=== PATIENT | male | born 1960 | race Caucasian/White ===

== ENCOUNTER 2016-11-25 14:28 | Emergency (ER) | payer OTHER ==
[2016-11-25] MEDS ORDERED: Sodium Chloride 0.9% 10 ML Syringe FLUSH PRN (14:43)
--- NOTE | 2016-11-25 15:19 | CR ---
Chest: Portable view of the chest was obtained. Comparison: No previous study. Heart size is slightly prominent. Upper mediastinum is within normal limits. Minimal atelectasis within the right lung base is seen. Old rib fractures with subsequent deformity is seen within the left chest. Rib fractures appear to be healed. Previous acromioplasty noted within the left shoulder. Mild scoliosis and degenerative change is seen within the spine. Impression: 1. Incidental findings. Nothing acute is identified on portable chest x-ray. Diagnostic code #2
[2016-11-25] MEDS ORDERED: Famotidine 20 MG/2 ML SDV IVPUSH ONE (15:22)
[2016-11-25] MEDS ORDERED: Ondansetron 4 MG/2 ML SDV IVPUSH ONE (15:22)
[2016-11-25] MEDS ORDERED: Sodium Chloride 0.9% 1,000 ML IV SCH (15:30)
--- NOTE | 2016-11-25 16:18 | EDM.PDOC ---
ED HISTORY OF PRESENT ILLNESS - General Chief Complaint: Chest Pain Stated Complaint: RIB PAIN/NAUSEA/VOMITING Time Seen by Provider: 11/25/16 14:42 Source of Information: Reports: Patient, RN notes reviewed - History of Present Illness INITIAL COMMENTS - FREE TEXT/NARRATIVE: 56 year old male that started with upper abd pain yesterday, severe watery diarrhea this past morning with increased pain upper abd radiating to lower mid chest. Pain does not radiate to L shoulder, arm or back. He is not short of breath. No recent cough, fever or chills. He has had nausea, no vomiting. - Related Data Allergies/ADRs: Allergies Allergy/AdvReac Type Severity Reaction Status Date / Time No Known Allergies Allergy Verified 11/25/16 14:43 Home Meds: Home Meds Aspirin/Calcium Carbonate/Mag [Aspirin Buffered 325 mg Tab] 325 mg PO DAILY [History] Hydrochlorothiazide 25 mg PO DAILY 11/25/16 [History] Omeprazole Magnesium [Prilosec] 10 mg PO DAILY 11/25/16 [History] metFORMIN [Glucophage XR] 500 mg PO BTNUNITS 11/25/16 [History] traZODone 100 mg PO DAILY 11/25/16 [History] Past Medical History HEENT History: Reports: Glaucoma Cardiovascular History: Reports: High cholesterol, Hypertension Respiratory History: Reports: Other (see below) Other Respiratory History: 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 Had CT which confirmed had a stroke Endocrine/Metabolic History: Reports: Diabetes, type II - Past Surgical History Musculoskeletal Surgical History: Reports: Shoulder surgery, Other (see below) Other Musculoskeletal Surgeries/Procedures:: knee surgery Social & Family History - Tobacco Use Smoking Status *Q: Current Every Day Smoker Years of Tobacco use: 25 Packs/Tins Daily: 0.5 - Caffeine Use Caffeine Use: Reports: Energy drinks - Recreational Drug Use Recreational Drug Use: No ED ROS GENERAL - Review of Systems Review Of Systems: See Below Constitutional: Denies: fever, chills HEENT: Denies: Sinus problem, Throat pain Respiratory: Denies: Shortness of Breath, Wheezing, Pleuritic Chest Pain Cardiovascular: Reports: Chest pain GI/Abdominal: Reports: Abdominal pain, Diarrhea (frequent watery today) Musculoskeletal: Denies: neck pain, shoulder pain, arm pain, back pain, joint pain Skin: Reports: no symptoms Neurological: Denies: Numbness, Tingling, Trouble Speaking, Weakness ED EXAM, GENERAL - Physical Exam Exam: See Below General Appearance: alert, no apparent distress Eye Exam: bilateral eye: PERRL Throat/Mouth: Normal inspection, Normal oropharynx, Other (oral mucosa is moist) Head: No: facial swelling Neck: supple, full range of motion. No: lymphadenopathy (L), lymphadenopathy (R ) Respiratory/Chest: no respiratory distress, lungs clear, normal breath sounds, chest non-tender Cardiovascular: regular rate, rhythm GI/Abdominal: soft, tender (mild upper mid epigastric tenderness). No: guarding , rebound Back Exam: No: CVA tenderness (L), CVA tenderness (R) Extremities: normal inspection. No: pedal edema, leg pain Neurological: alert, oriented, no motor/sensory deficits Skin Exam: Warm, Dry, Normal color EKG INTERPRETATION EKG Date: 11/25/16 Rhythm: other (sinus roseanna) Rate (beats/min): 53 [place]: normal P-wave: present QRS: normal ST-T: normal Course - Vital Signs Last Recorded V/S: Last Vital Signs Temp 97.4 F 11/25/16 14:40 Pulse 56 L 11/25/16 14:40 Resp 16 11/25/16 14:40 BP 133/80 11/25/16 14:40 Pulse Ox 96 11/25/16 14:40 - Orders/Labs/Meds Orders: Active Orders 24 hr Category Date Time Status EKG 12 Lead [EKG Documentation Completion] [RC] STAT Care 11/25/16 14:43 Active Peripheral IV Care [RC] . DIRECTED Care 11/25/16 14:43 Active Sodium Chloride 0.9% [Normal Saline] 1,000 ml Med 11/25/16 15:30 Active IV ONETIME Sodium Chloride 0.9% [Saline Flush] Med 11/25/16 14:43 Active 10 ml FLUSH ASDIRECTED PRN Peripheral IV Insertion Adult [OM.PC] Stat Oth 11/25/16 14:43 Ordered Medication Orders Sodium Chloride (Normal Saline) 1,000 mls @ 999 mls/hr IV ONETIME LEILA Last Admin: 11/25/16 15:30 Dose: 999 mls/hr Sodium Chloride (Saline Flush) 10 ml FLUSH ASDIRECTED PRN PRN Reason: Keep Vein Open Last Admin: 11/25/16 15:09 Dose: 10 ml Labs: Laboratory Tests 11/25/16 11/25/16 Range/Units 15:05 15:05 WBC 8.73 (4.23-9.07) K/mm3 RBC 5.38 (4.63-6.08) M/mm3 Hgb 15.8 (13.7-17.5) gm/L Hct 46.1 (40.1-51.0) % MCV 85.7 (79.0-92.2) fl MCH 29.4 (25.7-32.2) pg MCHC 34.3 (32.2-35.5) g/dl RDW Std Deviation 42.9 (35.1-43.9) fL Plt Count 223 (163-337) K/mm3 MPV 10.4 (9.4-12.3) fl Neut % (Auto) 78.5 H (34.0-67.9) % Lymph % (Auto) 12.9 L (21.8-53.1) % [place] % (Auto) 7.1 (5.3-12.2) % Eos % (Auto) 1.1 (0.8-7.0) Baso % (Auto) 0.2 (0.1-1.2) % Neut # (Auto) 6.84 H (1.78-5.38) K/mm3 Lymph # (Auto) 1.13 L (1.32-3.57) K/mm3 [place] # (Auto) 0.62 (0.30-0.82) K/mm3 Eos # (Auto) 0.10 (0.04-0.54) K/mm3 Baso # (Auto) 0.02 (0.01-0.08) K/mm3 Sodium 140 (136-145) mEq/L Potassium 3.0 L (3.5-5.1) mEq/L Chloride 102 (98-107) mEq/L Carbon Dioxide 28 (21-32) mEq/L Anion Gap 13.0 (5-15) BUN 19 H (7-18) mg/dL Creatinine 1.0 (0.7-1.3) mg/dL Est Cr Clr Drug Dosing TNP Estimated GFR (MDRD) > 60 (>60) mL/min BUN/Creatinine Ratio 19.0 H (14-18) Glucose 128 H (74-106) mg/dL Calcium 9.3 (8.5-10.1) mg/dL Total Bilirubin 0.6 (0.2-1.0) mg/dL AST 41 H (15-37) U/L ALT 56 (16-63) U/L Alkaline Phosphatase 53 (46-116) U/L Troponin I < 0.017 (0.00-0.056) ng/mL Total Protein 7.7 (6.4-8.2) g/dl Albumin 4.1 (3.4-5.0) g/dl Globulin 3.6 gm/dL Albumin/Globulin Ratio 1.1 (1-2) Meds: Medications Generic Name Dose Route Start Last Admin Trade Name Freq PRN Reason Stop Dose Admin Sodium Chloride 1,000 mls @ 999 mls/hr 11/25/16 15:30 11/25/16 15:30 Normal Saline IV 999 mls/hr ONETIME LEILA Administration Sodium Chloride 10 ml 11/25/16 14:43 11/25/16 15:09 Saline Flush FLUSH 10 ml ASDIRECTED PRN Administration Keep Vein Open Discontinued Medications Generic Name Dose Route Start Last Admin Trade Name Freq PRN Reason Stop Dose Admin Famotidine 20 mg 11/25/16 15:22 11/25/16 15:34 Pepcid IVPUSH 11/25/16 15:23 20 mg ONETIME ONE Administration Ondansetron HCl 4 mg 11/25/16 15:22 11/25/16 15:31 Zofran IVPUSH 11/25/16 15:23 4 mg ONETIME ONE Administration - Re-Assessments/Exams Free Text/Narrative Re-Assessment/Exam: 11/25/16 16:25 EKG showed sinus roseanna, no acute changes, trop labs normal except low K+. Have treated with IV NS, IV pepcid, zofran. He is feeling better.Discharge instr. as documented. Departure - Departure Time of Disposition: 16:13 Disposition: Home, Self-Care 01 Condition: fair Clinical Impression: Atypical chest pain, Hypokalemia Abdominal pain Qualifiers: Abdominal location: upper abdomen, unspecified Qualified Code(s): R10.10 - Upper abdominal pain, unspecified Diarrhea Qualifiers: Diarrhea type: unspecified type Qualified Code(s): R19.7 - Diarrhea, unspecified Referrals: [facility] [Primary Care Provider] - Forms: ED Department Discharge Additional Instructions: clear liquids until tomorrow morning, than careful bland diet as tolerated. probiotic (OTC) twice daily for 5 to 7 days and thereafter as needed. Your potassium was low today at 3.0. Eat plenty of fruit and vegetables. Bananas and potatos especially are a good source of potassium. Follow up clinic as needed, return to ED as needed. - My Orders Last 24 Hours: My Active Orders 11/25/16 14:43 EKG 12 Lead [EKG Documentation Completion] [RC] STAT Peripheral IV Care [RC] . DIRECTED Sodium Chloride 0.9% [Saline Flush] 10 ml FLUSH ASDIRECTED PRN Peripheral IV Insertion Adult [OM.PC] Stat 11/25/16 15:30 Sodium Chloride 0.9% [Normal Saline] 1,000 ml IV ONETIME - Assessment/Plan Last 24 Hours: My Active Orders 11/25/16 14:43 EKG 12 Lead [EKG Documentation Completion] [RC] STAT Peripheral IV Care [RC] . DIRECTED Sodium Chloride 0.9% [Saline Flush] 10 ml FLUSH ASDIRECTED PRN Peripheral IV Insertion Adult [OM.PC] Stat 11/25/16 15:30 Sodium Chloride 0.9% [Normal Saline] 1,000 ml IV ONETIME
[2016-11-25 17:36] VITALS: BP 137/75
== END 2016-11-25 16:35 | disposition home or self-care (01) ==
LOC: JD.ED 14:28
DX: R10.10 Upper abdominal pain, unspecified (principal); R19.7 Diarrhea, unspecified; F17.210 Nicotine dependence, cigarettes, uncomplicated; I10 Essential (primary) hypertension; E78.00 Pure hypercholesterolemia, unspecified; E11.9 Type 2 diabetes mellitus without complications; Z98.890 Other specified postprocedural states; Z79.899 Other long term (current) drug therapy; Z79.82 Long term (current) use of aspirin; Z79.84 Long term (current) use of oral hypoglycemic drugs
CPT/HCPCS: 36415; 71010; 80053; 84484; 85025; 93005; 96361; 96374; 96375; 99285; J2405; J7040; J7050; 99284

== ENCOUNTER 2016-11-30 03:52 | Emergency (ER) | payer BC, OTHER ==
--- NOTE | 2016-11-30 04:20 | EDM.PDOC ---
ED HPI GI/ABDOMINAL - General Chief Complaint: Abdominal Pain Stated Complaint: STOMACH CRAMPS DIARRHEA Time Seen by Provider: 11/30/16 03:54 Source of Information: Reports: Patient History Limitations: Reports: No limitations - History of Present Illness INITIAL COMMENTS - FREE TEXT/NARRATIVE: This is a 56-year-old male. He was seen here 5 days ago for nausea vomiting and diarrhea. He states he took the probiotics and it has helped but he is only taking them once a day. He's also been drinking lots of fluids and keeping his fluid status good. But he still having lots of diarrhea and some stomach cramps with the diarrhea. He no longer has the nausea and vomiting. Has been no fever no chills no cough no congestion and no other acute symptoms. He comes back tonight because of the diarrhea. He did try to eat some meat on Thursday it seemed to make it worse. He also needs a note for work. Patient does indicate the diarrhea is just mostly liquid and not formed there has been no blood noted. - Related Data Allergies/ADRs: Allergies Allergy/AdvReac Type Severity Reaction Status Date / Time No Known Allergies Allergy Verified 11/30/16 04:00 Home Meds: Home Meds Aspirin/Calcium Carbonate/Mag [Aspirin Buffered 325 mg Tab] 325 mg PO DAILY [History] Hydrochlorothiazide 25 mg PO DAILY 11/25/16 [History] Omeprazole Magnesium [Prilosec] 10 mg PO DAILY 11/25/16 [History] metFORMIN [Glucophage XR] 500 mg PO BTNUNITS 11/25/16 [History] traZODone 100 mg PO DAILY 11/25/16 [History] Past Medical History HEENT History: Reports: Glaucoma Cardiovascular History: Reports: High cholesterol, Hypertension Respiratory History: Reports: Other (see below) Other Respiratory History: 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 Had CT which confirmed had a stroke Endocrine/Metabolic History: Reports: Diabetes, type II - Past Surgical History Musculoskeletal Surgical History: Reports: Shoulder surgery, Other (see below) Other Musculoskeletal Surgeries/Procedures:: knee surgery Social & Family History - Tobacco Use Smoking Status *Q: Current Every Day Smoker Years of Tobacco use: 6 Packs/Tins Daily: 0.5 - Caffeine Use Caffeine Use: Reports: Energy drinks - Recreational Drug Use Recreational Drug Use: No ED ROS GENERAL - Review of Systems Review Of Systems: See Below Constitutional: Denies: fever, chills HEENT: Reports: No symptoms Respiratory: Reports: No Symptoms Cardiovascular: Reports: No symptoms Endocrine: Reports: no symptoms GI/Abdominal: Reports: Abdominal pain, Diarrhea, Decreased appetite, Nausea. Denies: Black stool, Bloody stool, Vomiting : Reports: no symptoms Musculoskeletal: Reports: no symptoms Skin: Reports: no symptoms Neurological: Reports: No Symptoms Psychiatric: Reports: No symptoms Hematologic/Lymphatic: Reports: no symptoms ED EXAM, GI/ABD - Physical Exam Exam: See Below Exam Limited By: No limitations General Appearance: alert, WD/WN, no apparent distress Eyes: bilateral: normal appearance Ears: normal external exam Nose: normal inspection Throat/Mouth: Normal inspection Head: normocephalic Neck: supple Respiratory/Chest: no respiratory distress, lungs clear, normal breath sounds Cardiovascular: regular rate, rhythm, no murmur GI/Abdominal: normal bowel sounds, soft, tenderness, other (Mild generalized soreness on palpation of his abdomen no localized pain). No: distention, guarding, rebound, rigidity, McBurney's sign, Aviles's sign Back Exam: full range of motion Extremities: normal inspection, normal range of motion Neurological: alert, oriented Psychiatric: normal affect, normal mood Skin Exam: Warm, Dry, Other (Skin turgor is good) Course - Vital Signs Last Recorded V/S: Last Vital Signs Temp 96.5 F 11/30/16 03:56 Pulse 70 11/30/16 03:56 Resp 16 11/30/16 03:56 BP 153/80 H 11/30/16 03:56 Pulse Ox 99 11/30/16 03:56 - Orders/Labs/Meds Orders: Active Orders 24 hr Category Date Time Status CULTURE STOOL + SHIGATOX [RM] Stat Lab 11/30/16 04:15 Received Labs: Laboratory Tests 11/30/16 11/30/16 Range/Units 04:22 04:22 WBC 11.74 H (4.23-9.07) K/mm3 RBC 5.42 (4.63-6.08) M/mm3 Hgb 16.0 (13.7-17.5) gm/L Hct 44.4 (40.1-51.0) % MCV 81.9 (79.0-92.2) fl MCH 29.5 (25.7-32.2) pg MCHC 36.0 H (32.2-35.5) g/dl RDW Std Deviation 38.4 (35.1-43.9) fL Plt Count 265 (163-337) K/mm3 MPV 10.2 (9.4-12.3) fl Neut % (Auto) 68.2 H (34.0-67.9) % Lymph % (Auto) 21.6 L (21.8-53.1) % [place] % (Auto) 7.9 (5.3-12.2) % Eos % (Auto) 1.7 (0.8-7.0) Baso % (Auto) 0.3 (0.1-1.2) % Neut # (Auto) 8.01 H (1.78-5.38) K/mm3 Lymph # (Auto) 2.53 (1.32-3.57) K/mm3 [place] # (Auto) 0.93 H (0.30-0.82) K/mm3 Eos # (Auto) 0.20 (0.04-0.54) K/mm3 Baso # (Auto) 0.04 (0.01-0.08) K/mm3 Sodium 137 (136-145) mEq/L Potassium 3.2 L (3.5-5.1) mEq/L Chloride 101 (98-107) mEq/L Carbon Dioxide 26 (21-32) mEq/L Anion Gap 13.2 (5-15) BUN 16 (7-18) mg/dL Creatinine 1.1 (0.7-1.3) mg/dL Est Cr Clr Drug Dosing TNP Estimated GFR (MDRD) > 60 (>60) mL/min BUN/Creatinine Ratio 14.5 (14-18) Glucose 155 H (74-106) mg/dL Calcium 9.1 (8.5-10.1) mg/dL Total Bilirubin 0.7 (0.2-1.0) mg/dL AST 22 (15-37) U/L ALT 41 (16-63) U/L Alkaline Phosphatase 62 (46-116) U/L Total Protein 7.7 (6.4-8.2) g/dl Albumin 3.9 (3.4-5.0) g/dl Globulin 3.8 gm/dL Albumin/Globulin Ratio 1.0 (1-2) - Re-Assessments/Exams Free Text/Narrative Re-Assessment/Exam: 11/30/16 05:29 I spoke to the patient regarding the test results he does not have rotavirus and is very few white cells in the stool his blood work looked good his potassium slightly low at 3.2 and a Baptism to eat more potassium rich foods. He is going to increase his probiotics to 3 times a day he can start eating year -old with activated cultures continue with lots of fluids and avoid meats for at least 4-5 days and stay on a bland diet. Departure - Departure Time of Disposition: 05:30 Disposition: Home, Self-Care 01 Condition: good Clinical Impression: Diarrhea Qualifiers: Diarrhea type: unspecified type Qualified Code(s): R19.7 - Diarrhea, unspecified Forms: ED Department Discharge, Return to Work/School Form Additional Instructions: Increase her probiotics to 3 times a day, start eating yogurt with activated cultures, continue with lots of fluids and eat potassium rich foods, rest as much as possible and take it easy, no meats or vegetables for a least 4-5 days and stay on a bland diet until that time, recheck with your doctor this week, return to the ER if needed - My Orders Last 24 Hours: My Active Orders 11/30/16 04:15 CULTURE STOOL + SHIGATOX [RM] Stat - Assessment/Plan Last 24 Hours: My Active Orders 11/30/16 04:15 CULTURE STOOL + SHIGATOX [RM] Stat
[2016-11-30 10:13] VITALS: BP 153/80
== END 2016-11-30 05:35 | disposition home or self-care (01) ==
LOC: JD.ED 03:52
DX: R19.7 Diarrhea, unspecified (principal); E78.00 Pure hypercholesterolemia, unspecified; I10 Essential (primary) hypertension; F17.210 Nicotine dependence, cigarettes, uncomplicated; Z79.82 Long term (current) use of aspirin; Z79.899 Other long term (current) drug therapy
CPT/HCPCS: 36415; 80053; 85025; 87046; 87425; 87427; 89055; 99282; 99284

== ENCOUNTER 2016-12-08 07:51 | Emergency (ER) | payer BC, OTHER ==
[2016-12-08 08:09] VITALS: BP 178/78
--- NOTE | 2016-12-08 08:25 | EDM.PDOC ---
ED HPI LOWER BACK PAIN/INJURY - General Chief Complaint: Back Pain or Injury Stated Complaint: LOWER BACK PAIN Time Seen by Provider: 12/08/16 08:15 - History of Present Illness INITIAL COMMENTS - FREE TEXT/NARRATIVE: 56-year-old male presents emergency room with low back pain. This started Thursday after moving some heavy trash cans. The patient felt some grinding and popping in his low back and gradually had worsening pain. This is affecting the right side it extends down into his buttocks and into his thigh. He has no pain below his knee. Patient denies any loss of bowel or bladder control no numbness or tingling in his foot. Patient has a history of prior back injuries and a bulged disc. This dates back to 1985. 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 - Related Data Allergies/ADRs: Allergies Allergy/AdvReac Type Severity Reaction Status Date / Time No Known Allergies Allergy Verified 12/08/16 08:08 Home Meds: Home Meds Aspirin/Calcium Carbonate/Mag [Aspirin Buffered 325 mg Tab] 325 mg PO DAILY [History] Hydrochlorothiazide 25 mg PO DAILY 11/25/16 [History] Omeprazole Magnesium [Prilosec] 10 mg PO DAILY 11/25/16 [History] metFORMIN [Glucophage XR] 500 mg PO BTNUNITS 11/25/16 [History] traZODone 100 mg PO DAILY 11/25/16 [History] Cyclobenzaprine [Flexeril] 10 mg PO TID #15 tablet 12/08/16 [Rx] Latanoprost [Xalatan] 1 drop EYEBOTH BEDTIME 12/08/16 [History] Past Medical History HEENT History: Reports: Glaucoma Cardiovascular History: Reports: High cholesterol, Hypertension Respiratory History: Reports: Other (see below) Other Respiratory History: 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 Had CT which confirmed had a stroke Endocrine/Metabolic History: Reports: Diabetes, type II - Past Surgical History Musculoskeletal Surgical History: Reports: Arthroscopic knee, Shoulder surgery Social & Family History - Tobacco Use Smoking Status *Q: Current Every Day Smoker Years of Tobacco use: 8 Packs/Tins Daily: 0.5 - Caffeine Use Caffeine Use: Reports: Energy drinks - Recreational Drug Use Recreational Drug Use: No ED ROS GENERAL - Review of Systems Review Of Systems: See Below Constitutional: Reports: no symptoms HEENT: Reports: No symptoms Respiratory: Reports: No Symptoms Cardiovascular: Reports: No symptoms GI/Abdominal: Reports: No symptoms : Reports: no symptoms Musculoskeletal: Reports: back pain, leg pain Neurological: Reports: No Symptoms ED EXAM,LOWER BACK PAIN/INJURY - Physical Exam Exam: See Below Exam Limited By: No limitations General Appearance: alert, no apparent distress, other (He has discomfort with change of positions he is comfortable lying back or sitting up. Changing positions is quite uncomfortable.) Head: atraumatic, normocephalic Neck: normal inspection, supple, non-tender, full range of motion Respiratory/Chest: no respiratory distress, lungs clear, normal breath sounds Cardiovascular: regular rate, rhythm, no edema, no murmur Back Exam: normal inspection, decreased range of motion, muscle spasm, paraspinal tenderness, other (He has tenderness in the lumbar right-sided paraspinous muscles as well as significant muscle spasm range of motion is limited due to pain). No: CVA tenderness (L), CVA tenderness (R), vertebral tenderness Extremities: normal inspection, no pedal edema, other (Straight leg raises causes significant discomfort in his low back on the right side while lifting the right leg this occurs beyond 45 patient has no numbness or tingling extends down into his leg or foot. Straight leg raises with left-sided caused localized discomfort in the right lower back at near full flexion.) Neurological: alert, normal mood/affect, normal dorsiflexion, normal plantar flexion, normal reflexes, oriented x 3 Course - Vital Signs Last Recorded V/S: Last Vital Signs Temp 36.4 C 12/08/16 08:05 Pulse 59 L 12/08/16 08:05 Resp 16 12/08/16 08:05 BP 178/78 H 12/08/16 08:05 Pulse Ox 96 12/08/16 08:05 - Orders/Labs/Meds Orders: Active Orders 24 hr Category Date Time Status Lumbar Spine 2 or 3V [CR] Stat Exams 12/08/16 08:26 Taken Meds: Medications Discontinued Medications Generic Name Dose Route Start Last Admin Trade Name Freq PRN Reason Stop Dose Admin Hydrocodone Bitart/Acetaminophen 1 tab 12/08/16 08:27 12/08/16 08:33 [place] 325-5 Mg PO 12/08/16 08:28 1 tab ONETIME ONE Administration Cyclobenzaprine HCl 10 mg 12/08/16 08:27 12/08/16 08:33 Flexeril PO 12/08/16 08:28 10 mg ONETIME ONE Administration - Re-Assessments/Exams Free Text/Narrative Re-Assessment/Exam: 12/08/16 08:33 At this point patient be started on Flexeril and we'll give him a single hydrocodone here in the emergency department with his history of prior injury and a bulging disc we'll check lumbar spine x-rays. 12/08/16 08:49 Examination lumbar spine x-rays reveals no acute fracture dislocation he has loss of lordotic curvature and degenerative changes noted he has maintained disc space height in the lumbar area this is somewhat diminished in the visualized portion of the thoracic spine. Patient has a calcification anterior to L4 and 5, discussed this with radiology who thinks it is atherosclerotic change. Patient will be discharged on Flexeril 3 times a day for 2 days then one in the evening for a week he will continue his ibuprofen 800 mg 3 times a day. Departure - Departure Time of Disposition: 09:05 Disposition: Home, Self-Care 01 Clinical Impression: Lumbar strain Prescriptions: Cyclobenzaprine [Flexeril] 10 mg PO TID #15 tablet Forms: ED Department Discharge Additional Instructions: Return to the emergency room with any questions or problems. Followup in the [facility] on Thursday or Thursday. Discussed getting into physical therapy. Continue your ibuprofen 800 mg 3 times a day. He then started on Flexeril, or cyclobenzaprine, this is a muscle relaxant. Use this 3 times a day today and tomorrow. Then take one in the evenings daily until gone. Allow 12 hours after using this medication before driving or returning to work as it can cause sedation. - My Orders Last 24 Hours: My Active Orders 12/08/16 08:26 Lumbar Spine 2 or 3V [CR] Stat - Assessment/Plan Last 24 Hours: My Active Orders 12/08/16 08:26 Lumbar Spine 2 or 3V [CR] Stat
[2016-12-08] MEDS ORDERED: Cyclobenzaprine 10 MG Tab PO ONE (08:27)
[2016-12-08] MEDS ORDERED: Acetaminophen/HYDROcodone 325-5 MG Tab PO ONE (08:27)
--- NOTE | 2016-12-08 12:10 | CR ---
Lumbar spine: AP, lateral and coned-down lateral views centered to the lumbosacral junction were obtained. Mild disc space narrowing noted at T10-T11. Minimal posterior disc space narrowing noted at L4-L5. Other disc spaces are preserved. Minimal anterior wedging of T11 is seen which is likely old as there is associated disc space narrowing. Vertebral body heights are maintained. Scattered endplate osteophytes are seen. No fracture or other abnormality is identified. Atherosclerotic change noted within the aorta with calcification. Impression: 1. Mild degenerative change within the lumbar spine and thoracic spine. Slight anterior wedging of T11 likely old. No acute abnormality is suspected. 2. Atherosclerotic calcification within the distal aorta. Diagnostic code #2
== END 2016-12-08 09:15 | disposition home or self-care (01) ==
LOC: JD.ED 07:51
DX: S39.012A Strain of muscle, fascia and tendon of lower back, initial encounter (principal); I10 Essential (primary) hypertension; E78.00 Pure hypercholesterolemia, unspecified; E11.9 Type 2 diabetes mellitus without complications; F17.210 Nicotine dependence, cigarettes, uncomplicated; Z98.890 Other specified postprocedural states; Z79.82 Long term (current) use of aspirin; Z79.84 Long term (current) use of oral hypoglycemic drugs; Z79.899 Other long term (current) drug therapy; X50.0XXA Overexertion from strenuous movement or load, initial encounter; Y93.89 Activity, other specified
CPT/HCPCS: 72100; 99283; A9270

== ENCOUNTER 2017-05-24 05:43 | Emergency (ER) | payer OTHER, BC ==
[2017-05-24] MEDS ORDERED: HYDROmorphone 1 MG/ML Syringe IM ONE (06:15)
[2017-05-24] MEDS ORDERED: Ketorolac 60 MG/2 ML SDV IM ONE (06:16)
--- NOTE | 2017-05-24 06:24 | EDM.PDOC ---
ED HPI GENERAL MEDICAL PROBLEM - General Chief Complaint: Lower Extremity Injury/Pain Stated Complaint: KNEE PROBLEM- [facility] S[facility] Time Seen by Provider: 05/24/17 05:58 Source of Information: Reports: Patient, Family History Limitations: Reports: No Limitations - History of Present Illness INITIAL COMMENTS - FREE TEXT/NARRATIVE: The patient hurt his left knee on February 05. He fell and he has seen his doctor at the [place]. He has had trouble with it ever since. This past he had an MRI done. Yesterday he was bending down and he felt and heard a pop in the same left knee. He has had swelling and severe pain ever since. He has a hard time walking on it. He has no other injuries. Onset: Sudden Duration: Day(s): (Yesterday) Location: Reports: Lower Extremity, Left (knee) Quality: Reports: Sharp Severity: Severe Improves with: Reports: None Worsens with: Reports: None Context: Reports: Other (He was bending over when this happened) Associated Symptoms: Reports: No Other Symptoms Left Knee Pain Score (Numeric/FACES): 10 - Related Data Allergies Allergy/AdvReac Type Severity Reaction Status Date / Time No Known Allergies Allergy Verified 12/08/16 08:08 Home Meds: Home Meds Aspirin/Calcium Carbonate/Mag [Aspirin Buffered 325 mg Tab] 325 mg PO DAILY [History] Hydrochlorothiazide 25 mg PO DAILY 11/25/16 [History] Omeprazole Magnesium [Prilosec] 10 mg PO DAILY 11/25/16 [History] metFORMIN [Glucophage XR] 500 mg PO BTNUNITS 11/25/16 [History] traZODone 100 mg PO DAILY 11/25/16 [History] Cyclobenzaprine [Flexeril] 10 mg PO TID #15 tablet 12/08/16 [Rx] Latanoprost [Xalatan] 1 drop EYEBOTH BEDTIME 12/08/16 [History] Past Medical History HEENT History: Reports: Glaucoma Cardiovascular History: Reports: Hypertension Respiratory History: Reports: Other (See Below) Other Respiratory History: punctured lung d/t logging accident Neurological History: Reports: CVA Other Neuro History: In 2012. Had CT which confirmed had a stroke Psychiatric History: Reports: Depression Endocrine/Metabolic History: Reports: Diabetes, Type II - Past Surgical History Musculoskeletal Surgical History: Reports: Arthroscopic Knee, Shoulder Surgery Social & Family History - Tobacco Use Smoking Status *Q: Current Every Day Smoker Years of Tobacco use: 35 Packs/Tins Daily: 0.5 Used Tobacco, but Quit: No - Caffeine Use Caffeine Use: Reports: Coffee - Recreational Drug Use Recreational Drug Use: No Review of Systems - Review of Systems Review Of Systems: See Below Constitutional: Reports: No Symptoms Eyes: Reports: No Symptoms Ears: Reports: No Symptoms Nose: Reports: No Symptoms Mouth/Throat: Reports: No Symptoms Respiratory: Reports: No Symptoms Cardiovascular: Reports: No Symptoms GI/Abdominal: Reports: No Symptoms Genitourinary: Reports: No Symptoms Musculoskeletal: Reports: Other (Left knee pain and edema) ED EXAM, GENERAL - Physical Exam Exam: See Below Exam Limited By: No Limitations General Appearance: Alert, Mild Distress Ears: Normal External Exam Nose: Normal Inspection Head: Atraumatic, Normocephalic Neck: Normal Inspection Respiratory/Chest: No Respiratory Distress Extremities: Other (Pain upon palpation to the anterior knee over the patalla and around it. Edema to the left knee. Good sensation and pulses distally.) Course - Vital Signs Last Recorded V/S: Last Vital Signs Temp 97.3 F 05/24/17 06:05 Pulse 63 05/24/17 06:05 Resp 18 05/24/17 06:05 BP 140/65 05/24/17 06:05 Pulse Ox 91 L 05/24/17 06:05 - Orders/Labs/Meds Orders: Active Orders 24 hr Category Date Time Status Knee Min 4V Lt [CR] Stat Exams 05/24/17 06:16 Taken Durable Medical Equipment for Discharge [DME for Oth 05/24/17 06:55 Ordered Discharge] [COMM] Stat Meds: Medications Discontinued Medications Generic Name Dose Route Start Last Admin Trade Name Freq PRN Reason Stop Dose Admin Hydromorphone HCl 1 mg 05/24/17 06:15 05/24/17 06:25 Dilaudid IM 05/24/17 06:16 1 mg ONETIME ONE Administration Ketorolac Tromethamine 60 mg 05/24/17 06:16 05/24/17 06:24 Toradol IM 05/24/17 06:17 60 mg ONETIME ONE Administration - Re-Assessments/Exams Free Text/Narrative Re-Assessment/Exam: 05/24/17 06:23 I ordered dilaudid 1mg IV, toradol 60mg IM and an x-ray. The MRI of his knee was done at [facility]. I do not have access this Thursday morning. 05/24/17 06:56 The x-ray shows some arthritis but nothing acute. He feels better. I will get him a knee immobilizer and some percocet for pain. Departure - Departure Time of Disposition: 07:00 Disposition: Home, Self-Care 01 Condition: Good Clinical Impression: Arthritis of left knee Left knee sprain Qualifiers: Encounter type: initial encounter Involved ligament of knee: unspecified ligament Qualified Code(s): S83.92XA - Sprain of unspecified site of left knee, initial encounter Left knee pain Qualifiers: Chronicity: acute Qualified Code(s): M25.562 - Pain in left knee - Discharge Information Referrals: Johana Gomez DO [Primary Care Provider] - Catrachito Louis MD [Physician] - 1 Week Forms: ED Department Discharge Additional Instructions: Wear the knee immobilizer for comfort. Use the crutches as needed. Ice you knee for 15 minutes every other hour while awake for 2 days. Follow up with Dr Louis in 1 week. Please return if you are worse. Take motrin or aleve for pain and you can try the percocet for pain. - My Orders Last 24 Hours: My Active Orders 05/24/17 06:16 Knee Min 4V Lt [CR] Stat 05/24/17 06:55 Durable Medical Equipment for Discharge [DME for Discharge] [COMM] Stat - Assessment/Plan Last 24 Hours: My Active Orders 05/24/17 06:16 Knee Min 4V Lt [CR] Stat 05/24/17 06:55 Durable Medical Equipment for Discharge [DME for Discharge] [COMM] Stat
[2017-05-24 07:21] VITALS: BP 120/66
--- NOTE | 2017-05-24 17:11 | CR ---
Left knee: Four views of the left knee were obtained. Comparison: No prior study. Mild lateral joint space narrowing is seen. Mild lateral osteophytes are seen. Medial joint also felt to be somewhat narrowed. Small patellar osteophytes are seen. Small joint effusion is seen. No acute fracture or other bony abnormality is identified. Impression: 1. Small joint effusion and mild degenerative change. 2. No acute bony abnormality is identified. Diagnostic code #2
== END 2017-05-24 07:15 | disposition home or self-care (01) ==
LOC: JD.ED 05:43
DX: S83.92XA Sprain of unspecified site of left knee, initial encounter (principal); M17.12 Unilateral primary osteoarthritis, left knee; E11.9 Type 2 diabetes mellitus without complications; F17.210 Nicotine dependence, cigarettes, uncomplicated; Z79.84 Long term (current) use of oral hypoglycemic drugs; Z79.899 Other long term (current) drug therapy; W19.XXXA Unspecified fall, initial encounter; Z79.82 Long term (current) use of aspirin
CPT/HCPCS: 73564; 96372; 99284; J1170; J1885

== ENCOUNTER 2017-08-06 06:44 | Day surgery (SDC) | payer OTHER, BC ==
[~2017-08-06 06:44] MED LIST: Lactated Ringers 1,000 ML IV SCH; Lidocaine 1%/Sod Bicarbonate in NS 8.4% 1 ML Syringe IV PRN; Midazolam 1 MG/ML 2 ML SDV ONE; Propofol 200 MG/20 ML SDV ONE; Sodium Chloride 0.9% 10 ML Syringe FLUSH PRN; fentaNYL 100 MCG/2 ML SDV ONE
[2017-08-06] MEDS ORDERED: ceFAZolin 1 GM Vial ONE (06:46)
--- NOTE | 2017-08-06 07:11 | PCM.PREANE ---
Preanesthetic Assessment - Anesthesia/Transfusion/Family Hx Anesthesia History: Prior Anesthesia Without Reaction Type of Anesthesia Reaction: Excessive Nausea/Vomiting (not excessive) Family History of Anesthesia Reaction: No - Review of Systems General: No Symptoms Pulmonary: No Symptoms Cardiovascular: No Symptoms Gastrointestinal: No Symptoms Neurological: No Symptoms, Other (sroke 5 years ago- no residual except eyes) Other: Reports: Diabetes, Depression - Physical Assessment NPO Status Date: 08/05/17 NPO Status Time: 20:00 Pulse: 65 O2 Sat by Pulse Oximetry: 96 Respiratory Rate: 16 Blood Pressure: 124/74 Temperature: 97.7 F Height: 5 ft 6 in Weight: 83.461 kg ASA Class: 2 Mental Status: Alert & Oriented x3 Airway Class: Mallampati = 1 Dentition: Reports: Normal Dentition, Partial Thyro-Mental Finger Breadths: 3 Mouth Opening Finger Breadths: 3 ROM/Head Extension: Full Lungs: Clear to Auscultation, Normal Respiratory Effort Cardiovascular: Regular Rate, Regular Rhythm - Lab Values: Laboratory Last Values MRSA (PCR) Negative 07/29/17 13:57 08/06/17 FBS 144 PTT 27 - Allergies Allergies/Adverse Reactions: Allergies Allergy/AdvReac Type Severity Reaction Status Date / Time No Known Allergies Allergy Verified 08/05/17 12:50 - Blood Blood Available: No - Acknowledgements Anesthesia Type Planned: Spinal Pt an Appropriate Candidate for the Planned Anesthesia: Yes Alternatives and Risks of Anesthesia Discussed w Pt/Guardian: Yes Pt/Guardian Understands and Agrees with Anesthesia Plan: Yes PreAnesthesia Questionnaire HEENT History: Reports: Glaucoma, Impaired Vision, Other (See Below) Other HEENT History: wears glasses, has partial Cardiovascular History: Reports: Hypertension Respiratory History: Reports: Other (See Below) Other Respiratory History: punctured lung d/t logging accident Gastrointestinal History: Reports: GERD Genitourinary History: Reports: None PIZZA COOK History: Reports: None Musculoskeletal History: Reports: Back Pain, Chronic, Osteoarthritis, Other ( See Below) Other Musculoskeletal History: cerviclagia Neurological History: Reports: CVA Other Neuro History: CVA in 2012. [address] which confirmed had a stroke Psychiatric History: Reports: Depression Endocrine/Metabolic History: Reports: Diabetes, Type II Hematologic History: Reports: None, Other (See Below) (hep c in past- treated) Immunologic History: Reports: None Oncologic (Cancer) History: Reports: None Dermatologic History: Reports: None - Infectious Disease History Infectious Disease History: Reports: Hepatitis C (treated) - Past Surgical History Head Surgeries/Procedures: Reports: None Cardiovascular Surgical History: Reports: None Respiratory Surgical History: Reports: None GI Surgical History: Reports: Colonoscopy Female Surgical History: Reports: None Male Surgical History: Reports: None Endocrine Surgical History: Reports: None Neurological Surgical History: Reports: None Musculoskeletal Surgical History: Reports: Arthroscopic Knee, Shoulder Surgery Other Musculoskeletal Surgeries/Procedures:: bilateral shoulder surgeries, bilateral carpal tunnel release, left meniscus repair Oncologic Surgical History: Reports: None Dermatological Surgical History: Reports: None - SUBSTANCE USE Smoking Status *Q: Former Smoker (quit july) Tobacco Use Within Last Twelve Months: Cigarettes Second Hand Smoke Exposure: Yes Days Per Week of Alcohol Use: 0 Recreational Drug Use History: No - HOME MEDS Home Medications: Home Meds Aspirin/Calcium Carbonate/Mag [Aspirin Buffered 325 mg Tab] 325 mg PO DAILY [History] Hydrochlorothiazide 25 mg PO DAILY 11/25/16 [History] metFORMIN [Glucophage XR] 500 mg PO QAM 11/25/16 [History] traZODone 75 mg PO BEDTIME 11/25/16 [History] Cholecalciferol (Vitamin D3) [Vitamin D3] 2,000 unit PO DAILY 08/05/17 [History] Citalopram Hydrobromide [Celexa] 20 mg PO DAILY 08/05/17 [History] Cyclobenzaprine [Flexeril] 10 mg PO BID PRN 08/05/17 [History] Pantoprazole Sodium [Protonix] 40 mg PO DAILY 08/05/17 [History] Simvastatin [Zocor] 20 mg PO BEDTIME 08/05/17 [History] oxyCODONE HCl/Acetaminophen [oxyCODONE-Acetaminophen 5-325] 1 tab PO TID PRN 10/18 [History] - CURRENT (IN HOUSE) MEDS Current Meds: Current Medications Lactated Ringer's (Ringers, Lactated) 1,000 mls @ 125 mls/hr IV ASDIRECTED LEILA Lidocaine/Sodium Bicarbonate (Buffered Lidocaine 1% In Ns 8.4%) 0.25 ml IV ONETIME PRN PRN Reason: Prior to IV Start Sodium Chloride (Saline Flush) 10 ml FLUSH ASDIRECTED PRN PRN Reason: Keep Vein Open Discontinued Medications Bupivacaine HCl (Marcaine 0.25%) Confirm Administered Dose 30 ml .ROUTE .STK- MED ONE Stop: 08/06/17 06:47 Cefazolin Sodium (Ancef) Confirm Administered Dose 2 gm .ROUTE .STK-MED ONE Stop: 08/06/17 06:39 Cefazolin Sodium (Ancef) Confirm Administered Dose 2 gm .ROUTE .STK-MED ONE Stop: 08/06/17 06:47 Fentanyl (Sublimaze) Confirm Administered Dose 100 mcg .ROUTE .STK-MED ONE Stop: 08/06/17 06:35 Iodine (Iodine 2% Mild Tincture) Confirm Administered Dose 30 ml .ROUTE .STK- MED ONE Stop: 08/06/17 06:47 Midazolam HCl (Versed 1 Mg/Ml) Confirm Administered Dose 2 mg .ROUTE .STK-MED ONE Stop: 08/06/17 06:35 Propofol (Diprivan 20 Ml) Confirm Administered Dose 400 mg .ROUTE .STK-MED ONE Stop: 08/06/17 06:35 Tranexamic Acid (Cyklokapron) Confirm Administered Dose 1,000 mg .ROUTE .STK- MED ONE Stop: 08/06/17 06:47 Vancomycin HCl (Vancomycin) Confirm Administered Dose 1 gm .ROUTE .STK-MED ONE Stop: 08/06/17 06:47
[2017-08-06] MEDS ORDERED: Ketamine 500 mg/10 ML MDV ONE (07:50)
[2017-08-06] MEDS ORDERED: Ondansetron 4 MG/2 ML SDV ONE (08:06)
[2017-08-06] MEDS ORDERED: fentaNYL 100 MCG/2 ML SDV IVPUSH PRN (08:18)
[2017-08-06] MEDS ORDERED: HYDROmorphone 1 MG/ML Syringe IVPUSH PRN (08:18)
[2017-08-06] MEDS ORDERED: Ondansetron 4 MG/2 ML SDV IVPUSH PRN ×2 (08:18→10:33)
[2017-08-06] MEDS ORDERED: ePHEDrine/Normal Saline 25 MG/5 ML Syringe ONE ×2 (08:28→09:12)
[2017-08-06] MEDS: Iodine/Sodium Iodide 2% Tincture 30 ML Bottle ONE ×2 (08:37→08:59)
[2017-08-06] MEDS: ceFAZolin 1 GM Vial ONE ×2 (08:38→09:04)
[2017-08-06] MEDS: Bupivacaine 0.25% 30 ML SDV ONE ×2 (08:38→09:11)
[2017-08-06] MEDS: Morphine 8 MG, EPINEPHrine 0.3 MG, Cefuroxime 750 MG, Ketorolac 30 MG, Sodium Chloride ... ONE ×10 (08:39→09:10)
[2017-08-06] MEDS: Vancomycin 1 GM SDV ONE ×2 (08:40→09:12)
[2017-08-06] MEDS ORDERED: Ketorolac 30 MG/ML SDV ONE (08:43)
[2017-08-06] MEDS ORDERED: Phenylephrine/Normal Saline 100 MCG/ML 10 ML Syringe ONE (09:12)
[2017-08-06] MEDS ORDERED: Lactated Ringers 1,000 ML ONE (09:22)
--- NOTE | 2017-08-06 09:54 | PCM.POSTAN ---
POST ANESTHESIA ASSESSMENT - MENTAL STATUS Mental Status: Alert, Oriented - VITAL SIGNS Pulse Rate: 63 SaO2: 95 Resp Rate: 14 Blood Pressure: 101/52 Temperature: 97.6 F - RESPIRATORY Respiratory Status: Respiratory Rate WNL, Airway Patent, O2 Saturation Stable, Supplemental Oxygen - CARDIOVASCULAR CV Status: Pulse Rate WNL, Blood Pressure Stable - GASTROINTESTINAL GI Status: No Symptoms - PAIN Pain Score: 0 - POST OP HYDRATION Hydration Status: Adequate & Stable
[2017-08-06] MEDS ORDERED: Docusate Sodium 100 MG Cap PO PRN (10:33)
[2017-08-06] MEDS ORDERED: Naloxone 0.4 MG/ML SDV IVPUSH PRN (10:33)
[2017-08-06] MEDS ORDERED: diphenhydrAMINE 50 MG/ML SDV IVPUSH PRN (10:33)
[2017-08-06] MEDS ORDERED: Bisacodyl 5 MG Tab PO PRN (10:33)
[2017-08-06] MEDS ORDERED: Sennosides 8.6 MG Tab PO PRN (10:33)
[2017-08-06] MEDS ORDERED: Magnesium Hydroxide 400 MG/5 ML Susp 30 ML Cup PO PRN (10:33)
[2017-08-06] MEDS ORDERED: Famotidine 20 MG Tab PO SCH (10:45)
--- NOTE | 2017-08-06 10:56 | CR ---
Left knee: AP and lateral views of the left knee were obtained. Comparison: Prior left knee exam of 05/24/17. Knee prosthesis is seen. Components are aligned. Underlying bony structures are intact. Soft tissue air is noted from the surgical procedure. Impression: 1. Satisfactory postop appearance of recently placed left knee prosthesis. Diagnostic code #2
--- NOTE | 2017-08-06 11:52 | PCM.SN ---
- Free Text/Narrative Note: Left adductor canal block Start: 1003 End: 1013 Chart reviewed. Appropriate monitors applied. Time out performed. Left mid- shaft femur evaluated with ultrasound. Scanning medially femur, the femoral artery was visualized in the adductor canal. The femoral nerve was medial to the artery. The skin was prepped lateral to the ultrasound probe with chlorahexadine. The 21ga 4 insulated block needle was inserted under direct ultrasound guidance into the adductor canal. 20mL of 0.5% ropivacaine with 1: [id number] epinephrine was injected cirmcumferentially about the nerve with intermittent negative aspiration. Patient tolerated the procedure well. See pictures on progress note. Zaire Mitchell CRNA
[2017-08-06] MEDS: Acetaminophen/oxyCODONE 325-5 MG Tab PO PRN ×3 (13:38→21:31)
[2017-08-06] MEDS: ceFAZolin 2 GM in Premix Bag 1 BAG IV SCH ×2 (15:49→22:26)
[2017-08-06] MEDS: CYCLOBENZAPRINE 10 MG PO PRN ×2 (16:06→21:32)
[2017-08-06] MEDS: Ketorolac 15 MG/ML SDV IVPUSH PRN ×2 (16:43→22:32)
[2017-08-06] MEDS: Morphine 2 MG/ML Syringe IVPUSH PRN ×2 (20:02→22:26)
[2017-08-06] MEDS ORDERED: SIMVASTATIN 40 MG PO SCH (21:00)
[2017-08-06] MEDS ORDERED: TRAZODONE 50 MG PO SCH (21:00)
[2017-08-07] MEDS: Morphine 2 MG/ML Syringe IVPUSH PRN ×3 (00:40→04:50)
[2017-08-07] MEDS: Acetaminophen/oxyCODONE 325-5 MG Tab PO PRN (02:31)
[2017-08-07] MEDS: Ketorolac 15 MG/ML SDV IVPUSH PRN (04:49)
[2017-08-07] MEDS: ceFAZolin 2 GM in Premix Bag 1 BAG IV SCH (05:45)
[2017-08-07] MEDS ORDERED: PANTOPRAZOLE 40 MG PO SCH (06:00)
[2017-08-07] MEDS ORDERED: Morphine 4 MG/ML Syringe IVPUSH PRN (07:31)
[2017-08-07] MEDS ORDERED: METFORMIN 500 MG PO SCH (08:00)
[2017-08-07] MEDS ORDERED: Rivaroxaban 10 MG Tab PO SCH (09:00)
[2017-08-07] MEDS ORDERED: CITALOPRAM 40 MG PO SCH (09:00)
[2017-08-07] MEDS ORDERED: HYDROCHLOROTHIAZIDE 25 MG PO SCH (09:00)
[2017-08-07] MEDS ORDERED: Cholecalciferol (Vitamin D3) 1,000 Unit Tab PO SCH (09:00)
--- NOTE | 2017-08-07 10:33 | PCM48HPAN ---
Post Anesthesia Note - EVALUATION WITHIN 48HRS OF ANESTHETIC Vital Signs in Normal Range: Yes Patient Participated in Evaluation: Yes Respiratory Function Stable: Yes Airway Patent: Yes Cardiovascular Function Stable: Yes Hydration Status Stable: Yes Pain Control Satisfactory: Yes Nausea and Vomiting Control Satisfactory: Yes Mental Status Recovered: Yes
[2017-08-07 12:36] VITALS: BP 101/60
--- NOTE | 2017-08-10 14:06 | PCM.SURGPN ---
- General Info Date of Service: 08/07/17 POD#: 1 Functional Status: Reports: Pain Controlled, Tolerating Diet, Ambulating, Urinating, Incentive Spirometry, Other (The pt reports his pain is better controlled with Nucynta.) - Review of Systems General: Denies: Fever, Chills - Patient Data Vitals - Most Recent: Last Vital Signs Temp 98.5 F 08/07/17 10:00 Pulse 71 08/07/17 10:00 Resp 18 08/07/17 10:00 BP 101/60 08/07/17 10:00 Pulse Ox 97 08/07/17 10:00 Weight - Most Recent: 184 lb Med Orders - Current: Current Medications Discontinued Medications Bisacodyl (Dulcolax) 5 mg PO DAILY PRN PRN Reason: Constipation Bupivacaine HCl (Marcaine 0.25%) Confirm Administered Dose 30 ml .ROUTE .STK- MED ONE Stop: 08/06/17 06:47 Last Admin: 08/06/17 09:11 Dose: 30 ml Cefazolin Sodium (Ancef) Confirm Administered Dose 2 gm .ROUTE .STK-MED ONE Stop: 08/06/17 06:39 Last Admin: 08/06/17 09:04 Dose: 2 gm Cefazolin Sodium (Ancef) Confirm Administered Dose 2 gm .ROUTE .STK-MED ONE Stop: 08/06/17 06:47 Cholecalciferol (Vitamin D3) 2,000 units PO DAILY LEILA Last Admin: 08/07/17 11:04 Dose: 2,000 units Morphine Sulfate 8 mg/Epinephrine HCl 0.3 mg/Cefuroxime Sodium 750 mg/Ketorolac Tromethamine 30 mg/Sodium Chloride 27.9 ml 0 mg .XX ONETIME ONE Stop: 08/06/17 07:11 Last Admin: 08/06/17 09:10 Dose: 788.3 mg Cyclobenzaprine HCl (Flexeril) 10 mg PO TID PRN PRN Reason: Spasms Last Admin: 08/06/17 21:32 Dose: 10 mg Diphenhydramine HCl (Benadryl) 25 mg IVPUSH Q4H PRN PRN Reason: Nausea Docusate Sodium (Colace) 100 mg PO BID PRN PRN Reason: Constipation Ephedrine Sulfate (Ephedrine In Ns) Confirm Administered Dose 25 mg .ROUTE .STK- MED ONE Stop: 08/06/17 08:29 Ephedrine Sulfate (Ephedrine In Ns) Confirm Administered Dose 25 mg .ROUTE .[facility] ONE Stop: 08/06/17 09:13 Famotidine (Pepcid) 20 mg PO Q12H [facility] Fentanyl (Sublimaze) Confirm Administered Dose 100 mcg .ROUTE .[facility] ONE Stop: 08/06/17 06:35 Fentanyl (Sublimaze) 50 mcg IVPUSH Q5M PRN PRN Reason: Pain Stop: 08/06/17 18:00 Hydrochlorothiazide (Hydrochlorothiazide) 25 mg PO DAILY [facility] Last Admin: 08/07/17 11:04 Dose: 25 mg Hydromorphone HCl (Dilaudid) 0.5 mg IVPUSH Q15M PRN PRN Reason: severe pain Stop: 08/06/17 18:00 Lactated Ringer's (Ringers, Lactated) 1,000 mls @ 125 mls/hr IV ASDIRECTED [facility] Last Admin: 08/06/17 07:15 Dose: 125 mls/hr Lactated Ringer's (Ringers, Lactated) Confirm Administered Dose 1,000 mls @ as directed .ROUTE .[facility] ONE Stop: 08/06/17 09:23 Cefazolin Sodium/Dextrose 2 gm (/ Premix) 50 mls @ 100 mls/hr IV Q8H [facility] Stop: 08/07/17 07:14 Last Admin: 08/07/17 05:45 Dose: 100 mls/hr Iodine (Iodine 2% Mild Tincture) Confirm Administered Dose 30 ml .ROUTE .[facility] ONE Stop: 08/06/17 06:47 Last Admin: 08/06/17 08:59 Dose: 18 ml Ketamine HCl (Ketalar) Confirm Administered Dose 500 mg .ROUTE .[facility] ONE Stop: 08/06/17 07:51 Ketorolac Tromethamine (Toradol) Confirm Administered Dose 30 mg .ROUTE .[facility] ONE Stop: 08/06/17 08:44 Ketorolac Tromethamine (Toradol) 15 mg IVPUSH Q6H PRN PRN Reason: Pain Last Admin: 08/07/17 04:49 Dose: 15 mg Lidocaine/Sodium Bicarbonate (Buffered Lidocaine 1% In Ns 8.4%) 0.25 ml IV ONETIME PRN PRN Reason: Prior to IV Start Last Admin: 08/06/17 07:15 Dose: 0.25 ml Magnesium Hydroxide (Milk Of Magnesia) 30 ml PO BID PRN PRN Reason: Constipation Midazolam HCl (Versed 1 Mg/Ml) Confirm Administered Dose 2 mg .ROUTE .STK-MED ONE Stop: 08/06/17 06:35 Morphine Sulfate (Morphine) 2 mg IVPUSH Q2H PRN PRN Reason: Breakthrough Pain Last Admin: 08/07/17 04:50 Dose: 2 mg Morphine Sulfate (Morphine) 2 mg IVPUSH Q2H PRN PRN Reason: Breakthrough Pain Last Admin: 08/07/17 11:04 Dose: 2 mg Naloxone HCl (Narcan) 0.1 mg IVPUSH Q5M PRN PRN Reason: Oversedation Ondansetron HCl (Zofran) Confirm Administered Dose 4 mg .ROUTE .[facility] ONE Stop: 08/06/17 08:07 Ondansetron HCl (Zofran) 4 mg IVPUSH ONETIME PRN PRN Reason: Nausea/Vomiting Stop: 08/06/17 18:00 Ondansetron HCl (Zofran) 4 mg IVPUSH Q6H PRN PRN Reason: Nausea/Vomiting Oxycodone/Acetaminophen (Percocet 325-5 Mg) 1 - 2 tab PO Q4H PRN PRN Reason: Pain Last Admin: 08/07/17 02:31 Dose: 2 tab Pantoprazole Sodium (Protonix) 40 mg PO ACBREAKFAST [facility] Last Admin: 08/07/17 05:39 Dose: 40 mg Ptom: Citalopram (40mg Tablet) 0.5 each PO DAILY [facility] Ptom: Metformin Er (Tablet 500mg) 1 each PO QAM [facility] Phenylephrine HCl (Phenylephrine In Ns 100 Mcg/Ml) Confirm Administered Dose 1 mg .ROUTE .[facility] [employer] ONE Stop: 08/06/17 09:13 Propofol (Diprivan 20 Ml) Confirm Administered Dose 400 mg .ROUTE .STK-MED ONE Stop: 08/06/17 06:35 Rivaroxaban (Xarelto) 10 mg PO DAILY [facility] Last Admin: 08/07/17 11:04 Dose: 10 mg Senna (Senna) 8.6 mg PO BID PRN PRN Reason: Constipation Simvastatin (Zocor) 20 mg PO BEDTIME [facility]IL[facility] Last Admin: 08/06/17 21:30 Dose: 20 mg Sodium Chloride (Saline Flush) 10 ml FLUSH ASDIRECTED PRN PRN Reason: Keep Vein Open Tapentadol (Nucynta) 50 mg PO ONETIME ONE Stop: 08/07/17 05:20 Last Admin: 08/07/17 05:39 Dose: 50 mg Tapentadol (Nucynta) 50 - 100 mg PO Q4H PRN PRN Reason: Pain Last Admin: 08/07/17 08:00 Dose: 50 mg Tranexamic Acid (Cyklokapron) Confirm Administered Dose 1,000 mg .ROUTE .STK- MED ONE Stop: 08/06/17 06:47 Last Admin: 08/06/17 09:17 Dose: 1,000 mg Trazodone HCl (Trazodone) 75 mg PO BEDTIME [facility] Last Admin: 08/06/17 21:30 Dose: 75 mg Vancomycin HCl (Vancomycin) Confirm Administered Dose 1 gm .ROUTE .STK-MED ONE Stop: 08/06/17 06:47 Last Admin: 08/06/17 09:12 Dose: 1 gm - Exam Wound/Incisions: Dressing Dry and Intact General: Alert, Cooperative, No Acute Distress Lungs: Normal Respiratory Effort Extremities: Other (NVS intact for BLE. Tammy's negative.) - Problem List Review Problem List Initiated/Reviewed/Updated: Yes - Assessment Assessment (Free Text/Narrative):: POD#1 - left TKA - Plan Plan (Free Text/Narrative):: 1. Discharge to home today. 2. Nucynta for pain control. 3. Hgb 11.5. 4. Xarelto for VTE prophylaxis. Dr. Louis evaluated the pt today.
--- NOTE | 2017-08-10 14:08 | PCM.DCSUM1 ---
Discharge Summary - Hospital Course Brief History: Van is a 57 yo male who underwent left TKA with Dr. Louis on 08-10. The procedure was completed under spinal anesthesia with adductor block. The pt tolerated the procedure well and was admitted to the Medical- Surgical Unit. Medical management was provided by the Hospitalist service. The pt's Hospital course was uneventful. The pt's Hgb on POD#1 was 11.5. On POD#1, Xarelto 10mg PO daily was initiated for VTE prophylaxis. SCDs and TEDs were also ordered. A Mepilex dressing was placed at the incision site at the time of surgery and remained clean and dry. The pt participated in P.T. and O.T. and progressed well. The pt was allowed to WBAT and used a FWW for mobility. On POD#1, the pt was deemed appropriate to discharge to home with his . - Discharge Data Discharge Date: 08/07/17 Discharge Disposition: Home, Self-Care 01 Condition: Good - Patient Summary/Data Consults: Consultations 08/06/17 10:17 Consult to Physical Therapy [PT Evaluation and Treatment] [CONS] Routine 08/06/17 10:33 OT Evaluation and Treatment [CONS] Routine 08/06/17 10:42 Consult to Physician [CONS] Routine - Patient Instructions Diet: Usual Diet as Tolerated Activity: Apply Ice, As Tolerated, Elevate Extremity, Full Weight Bearing Driving: Do Not Drive Showering/Bathing: May Shower Wound/Incision Care: Keep Operative Site/Wound Site Clean and Dry, Do NOT Change Dressing Notify Provider of: Fever, Increased Pain, Swelling and Redness, Drainage, Nausea and/or Vomiting Other/Special Instructions: Please get up and moving around every hour while awake. This helps to prevent blood clots. Please use your walker and have help as needed. Take the blood thinner medication - Xarelto - daily as directed. Do the exercises you were taught in the Hospital. Schedule for P.T. Please check with your [facility] insurance regarding coverage for P.T. services. Use the pain medication as needed. The medication may cause drowsiness and constipation. Contact your primary care provider for instructions if you are constipated. You may use a stool softener like docusate sodium or Colace 100mg twice daily and/or a laxative like Miralax daily for constipation. You have been given a prescription for Nucynta - pain medication. Please do NOT use Percocet, or any other pain medication, while using the Nucynta. Use the ice machine often. Elevate the limb to decrease swelling. Keep the Mepilex dressing in place until follow-up at the Clinic. Notify the Clinic if the dressing is saturated. Wear the NATHANIEL hose during the day and you may remove these at night. Eat a diet high in protein as this well help with healing. Schedule an appointment with your primary care provider for 'routine post-op care'. Call the Clinic with questions or concerns - [phone]. - Discharge Plan Prescriptions/Med Rec: Cyclobenzaprine [Flexeril] 10 mg PO TID PRN #40 tablet PRN Reason: Spasms Rivaroxaban [Xarelto] 10 mg PO DAILY #40 tablet Tapentadol HCl [Nucynta] 50 - 100 mg PO Q4H PRN #40 tablet PRN Reason: Pain Home Medications: Home Meds Hydrochlorothiazide 25 mg PO DAILY 11/25/16 [History] metFORMIN [Glucophage XR] 500 mg PO QAM 11/25/16 [History] traZODone 75 mg PO BEDTIME 11/25/16 [History] Cholecalciferol (Vitamin D3) [Vitamin D3] 2,000 unit PO DAILY 08/05/17 [History] Citalopram Hydrobromide [Celexa] 20 mg PO DAILY 08/05/17 [History] Pantoprazole Sodium [Protonix] 40 mg PO DAILY 08/05/17 [History] Simvastatin [Zocor] 20 mg PO BEDTIME 08/05/17 [History] Sennosides/Docusate Sodium [Stool Softener Tablet] 1 tab PO DAILY PRN 08/06/17 [ History] Tamsulosin HCl [Flomax] 0.4 mg PO DAILY 08/06/17 [History] Bisacodyl [Dulcolax] 5 mg PO DAILY PRN tablet 08/07/17 [Rx] Cyclobenzaprine [Flexeril] 10 mg PO TID PRN #40 tablet 08/07/17 [Rx] Rivaroxaban [Xarelto] 10 mg PO DAILY #40 tablet 08/07/17 [Rx] Tapentadol HCl [Nucynta] 50 - 100 mg PO Q4H PRN #40 tablet 08/07/17 [Rx] Referrals: Yamilet Avila PA-C [Physician Sightseeing Guide] - 08/11/17 2:45 am (Please follow-up with Yamilet Avila on 08/11/2017. Next follow-up appointment is on 08/18/2017. ) - Patient Data Vitals - Most Recent: Last Vital Signs Temp 98.5 F 08/07/17 10:00 Pulse 71 08/07/17 10:00 Resp 18 08/07/17 10:00 BP 101/60 08/07/17 10:00 Pulse Ox 97 08/07/17 10:00 Weight - Most Recent: 184 lb Med Orders - Current: Current Medications Discontinued Medications Bisacodyl (Dulcolax) 5 mg PO DAILY PRN PRN Reason: Constipation Bupivacaine HCl (Marcaine 0.25%) Confirm Administered Dose 30 ml .ROUTE .STK- MED ONE Stop: 08/06/17 06:47 Last Admin: 08/06/17 09:11 Dose: 30 ml Cefazolin Sodium (Ancef) Confirm Administered Dose 2 gm .ROUTE .STK-MED ONE Stop: 08/06/17 06:39 Last Admin: 08/06/17 09:04 Dose: 2 gm Cefazolin Sodium (Ancef) Confirm Administered Dose 2 gm .ROUTE .STK-MED ONE Stop: 08/06/17 06:47 Cholecalciferol (Vitamin D3) 2,000 units PO DAILY LEILA Last Admin: 08/07/17 11:04 Dose: 2,000 units Morphine Sulfate 8 mg/Epinephrine HCl 0.3 mg/Cefuroxime Sodium 750 mg/Ketorolac Tromethamine 30 mg/Sodium Chloride 27.9 ml 0 mg .XX ONETIME ONE Stop: 08/06/17 07:11 Last Admin: 08/06/17 09:10 Dose: 788.3 mg Cyclobenzaprine HCl (Flexeril) 10 mg PO TID PRN PRN Reason: Spasms Last Admin: 08/06/17 21:32 Dose: 10 mg Diphenhydramine HCl (Benadryl) 25 mg IVPUSH Q4H PRN PRN Reason: Nausea Docusate Sodium (Colace) 100 mg PO BID PRN PRN Reason: Constipation Ephedrine Sulfate (Ephedrine In Ns) Confirm Administered Dose 25 mg .ROUTE .STK- MED ONE Stop: 08/06/17 08:29 Ephedrine Sulfate (Ephedrine In Ns) Confirm Administered Dose 25 mg .ROUTE .STK- MED ONE Stop: 08/06/17 09:13 Famotidine (Pepcid) 20 mg PO Q12H [facility] Fentanyl (Sublimaze) Confirm Administered Dose 100 mcg .ROUTE .STK-MED ONE Stop: 08/06/17 06:35 Fentanyl (Sublimaze) 50 mcg IVPUSH Q5M PRN PRN Reason: Pain Stop: 08/06/17 18:00 Hydrochlorothiazide (Hydrochlorothiazide) 25 mg PO DAILY [facility] Last Admin: 08/07/17 11:04 Dose: 25 mg Hydromorphone HCl (Dilaudid) 0.5 mg IVPUSH Q15M PRN PRN Reason: severe pain Stop: 08/06/17 18:00 Lactated Ringer's (Ringers, Lactated) 1,000 mls @ 125 mls/hr IV ASDIRECTED [facility] Last Admin: 08/06/17 07:15 Dose: 125 mls/hr Lactated Ringer's (Ringers, Lactated) Confirm Administered Dose 1,000 mls @ as directed .ROUTE .[facility]-MED ONE Stop: 08/06/17 09:23 Cefazolin Sodium/Dextrose 2 gm (/ Premix) 50 mls @ 100 mls/hr IV Q8H [facility] Stop: 08/07/17 07:14 Last Admin: 08/07/17 05:45 Dose: 100 mls/hr Iodine (Iodine 2% Mild Tincture) Confirm Administered Dose 30 ml .ROUTE .STK- MED ONE Stop: 08/06/17 06:47 Last Admin: 08/06/17 08:59 Dose: 18 ml Ketamine HCl (Ketalar) Confirm Administered Dose 500 mg .ROUTE .STK-MED ONE Stop: 08/06/17 07:51 Ketorolac Tromethamine (Toradol) Confirm Administered Dose 30 mg .ROUTE .STK- MED ONE Stop: 08/06/17 08:44 Ketorolac Tromethamine (Toradol) 15 mg IVPUSH Q6H PRN PRN Reason: Pain Last Admin: 08/07/17 04:49 Dose: 15 mg Lidocaine/Sodium Bicarbonate (Buffered Lidocaine 1% In Ns 8.4%) 0.25 ml IV ONETIME PRN PRN Reason: Prior to IV Start Last Admin: 08/06/17 07:15 Dose: 0.25 ml Magnesium Hydroxide (Milk Of Magnesia) 30 ml PO BID PRN PRN Reason: Constipation Midazolam HCl (Versed 1 Mg/Ml) Confirm Administered Dose 2 mg .ROUTE .STK-MED ONE Stop: 08/06/17 06:35 Morphine Sulfate (Morphine) 2 mg IVPUSH Q2H PRN PRN Reason: Breakthrough Pain Last Admin: 08/07/17 04:50 Dose: 2 mg Morphine Sulfate (Morphine) 2 mg IVPUSH Q2H PRN PRN Reason: Breakthrough Pain Last Admin: 08/07/17 11:04 Dose: 2 mg Naloxone HCl (Narcan) 0.1 mg IVPUSH Q5M PRN PRN Reason: Oversedation Ondansetron HCl (Zofran) Confirm Administered Dose 4 mg .ROUTE .[facility]-MED ONE Stop: 08/06/17 08:07 Ondansetron HCl (Zofran) 4 mg IVPUSH ONETIME PRN PRN Reason: Nausea/Vomiting Stop: 08/06/17 18:00 Ondansetron HCl (Zofran) 4 mg IVPUSH Q6H PRN PRN Reason: Nausea/Vomiting Oxycodone/Acetaminophen (Percocet 325-5 Mg) 1 - 2 tab PO Q4H PRN PRN Reason: Pain Last Admin: 08/07/17 02:31 Dose: 2 tab Pantoprazole Sodium (Protonix) 40 mg PO ACBREAKFAST [facility] Last Admin: 08/07/17 05:39 Dose: 40 mg Ptom: Citalopram (40mg Tablet) 0.5 each PO DAILY [facility] Ptom: Metformin Er (Tablet 500mg) 1 each PO QAM [facility] Phenylephrine HCl (Phenylephrine In Ns 100 Mcg/Ml) Confirm Administered Dose 1 mg .ROUTE .[facility]-MED ONE Stop: 08/06/17 09:13 Propofol (Diprivan 20 Ml) Confirm Administered Dose 400 mg .ROUTE .STK-MED ONE Stop: 08/06/17 06:35 Rivaroxaban (Xarelto) 10 mg PO DAILY [facility] Last Admin: 08/07/17 11:04 Dose: 10 mg Senna (Senna) 8.6 mg PO BID PRN PRN Reason: Constipation Simvastatin (Zocor) 20 mg PO BEDTIME [facility] Last Admin: 08/06/17 21:30 Dose: 20 mg Sodium Chloride (Saline Flush) 10 ml FLUSH ASDIRECTED PRN PRN Reason: Keep Vein Open Tapentadol (Nucynta) 50 mg PO ONETIME ONE Stop: 08/07/17 05:20 Last Admin: 08/07/17 05:39 Dose: 50 mg Tapentadol (Nucynta) 50 - 100 mg PO Q4H PRN PRN Reason: Pain Last Admin: 08/07/17 08:00 Dose: 50 mg Tranexamic Acid (Cyklokapron) Confirm Administered Dose 1,000 mg .ROUTE .STK- MED ONE Stop: 08/06/17 06:47 Last Admin: 08/06/17 09:17 Dose: 1,000 mg Trazodone HCl (Trazodone) 75 mg PO BEDTIME [facility] Last Admin: 08/06/17 21:30 Dose: 75 mg Vancomycin HCl (Vancomycin) Confirm Administered Dose 1 gm .ROUTE .STK-MED ONE Stop: 08/06/17 06:47 Last Admin: 08/06/17 09:12 Dose: 1 gm *Q Meaningful Use (DIS) - VTE *Q VTE Criteria *Q: - Stroke *Q Stroke Criteria *Q: - AMI *Q AMI Criteria *Q:
--- NOTE | 2017-08-11 05:06 | PCM.OPNOTE ---
- General Post-Op/Procedure Note Date of Surgery/Procedure: 08/06/17 Operative Procedure(s): left total knee arthroplasty Pre Op Diagnosis: left knee osteoarthorsis Post-Op Diagnosis: Same Anesthesia Technique: Local, MAC, Regional Block, Spinal Primary Surgeon: Catrachito Louis Anesthesia Provider: Carmina Holden Mud Logger: Yamilet Avila Mud Logger: Martha Quick EBL in mLs: 200 Complications: None Condition: Good
--- NOTE | 2017-08-11 06:05 | OR ---
DATE OF OPERATION: 08/06/2017 SURGEON: Catrachito Louis MD OPERATION PERFORMED: Left total knee arthroplasty. PREOPERATIVE DIAGNOSIS: Left knee osteoarthrosis. POSTOPERATIVE DIAGNOSIS: Left knee osteoarthrosis. ANESTHESIA: Local MAC with adductor canal block and spinal. ANESTHESIA PROVIDER: Carmina Holden CRNA. ASSISTANTS: Yamilet Avila PA-C, and Martha Quick LPN. ESTIMATED BLOOD LOSS: 200 mL. COMPLICATIONS: None. CONDITION: Stable. IMPLANTS: 1. Rodney size 4 press-fit PS femur. 2. Rodney size 4 press-fit tibial baseplate. 3. Rodney size 4 9-mm PS X3 polyethylene. 4. Rodney 32 x 10 mm asymmetric press-fit patella. DESCRIPTION OF PROCEDURE: The patient was identified in the preop holding area. Proper site was marked and identified by the surgeon. The patient was taken back to the operating theater. After adequate anesthesia, the patient's left lower extremity had a nonsterile tourniquet applied and it was then sterilely prepped and draped in the usual sterile fashion. OR timeout was performed. The patient received 2 grams IV Ancef. At this time, left lower extremity was exsanguinated. Tourniquet was insufflated to 300 mmHg. Standard medial parapatellar incision was made. Medial parapatellar arthrotomy was created. Deep fibers of the MCL were raised and anterior fat pad was resected. At this time, attention was turned to the patella. Patella measured a 24 and it was resected to a 14 for a 32 x 10 mm patella. Drill holes were then drilled and found to be in adequate position. The drill was then drilled in the distal femur and the intramedullary distal femoral cutting guide was then placed. 8 mm was resected off the distal femur and was found to be an adequate resection. Sizing guide was placed. It was found to be a size 4 press-fit PS femur that was shown on the implant record at the beginning of this dictation. The drill holes were drilled for the epicondylar axis using [place] line and epicondyles as reference. At this time, the 4-in-1 cutting block was placed. An anterior posterior and anterior and posterior chamfer cuts were then completed. The correct size box cut was then placed and the box cut was completed and found to be an adequate resection. Attention was turned to the tibia. The posterior medial lateral retractors were placed. The extramedullary tibial guide was placed. It was placed in the old footprint of the ACL. It was aligned with the center of the ankle and 0 degrees of slope, 9 mm was then resected off the unaffected lateral side. There was found to be an acceptable reduction. At this time, posterior osteophytes were removed along with medial and lateral meniscus. A trial implant was placed with a correct sized tibia that was mentioned at the beginning of the dictation. A Rodney size 4 9-mm PS X3 polyethylene was then placed. The patient's knee was brought through range of motion. The patella was tracking centrally and was stable to varus and valgus stress. Alignment was found to be roughly at 0 degrees. The tibia was stamped and drilled in proper rotation. The universal tibial base plate was impacted into place. Next, the size 4 press-fit PS femur was impacted into place and the [place] size 4 9-mm PS X3 was placed. The patient's knee was brought into full extension. The patella was then impacted into place at this time. Tourniquet was deflated. One liter dilute Betadine solution was irrigated through the knee along with 3 L of pulse lavage irrigation with Ancef. Periarticular injection was then completed. The patient's knee was brought through a range of motion. Knee was found to be stable to varus valgus stress, the patella was tracking centrally with full range of motion. At this time, a #2 barbed suture was used for closure of the medial parapatellar arthrotomy. Topical tranexamic acid was placed. 2-0 Vicryl was used subcutaneously, a running 3-0 Monocryl was used subcuticularly. The patient tolerated the procedure well and was sent to the PACU in a stable condition. MMODAL /[id number] MELCHOR
== END 2017-08-07 11:00 | disposition home or self-care (01) ==
LOC: JD.SDS 06:44 → EDSTATUS 12:00 → JD.SDS 08-07 11:00
PROVIDERS: ATTEND Orthopaedic Surgery
DX: M17.12 Unilateral primary osteoarthritis, left knee (principal); E11.9 Type 2 diabetes mellitus without complications; I10 Essential (primary) hypertension; K21.9 Gastro-esophageal reflux disease without esophagitis; F32.9 Major depressive disorder, single episode, unspecified; Z79.899 Other long term (current) drug therapy; Z79.84 Long term (current) use of oral hypoglycemic drugs; Z87.891 Personal history of nicotine dependence; Z86.73 Personal history of transient ischemic attack (TIA), and cerebral infarction without residual deficits; Z86.19 Personal history of other infectious and parasitic diseases; Z98.890 Other specified postprocedural states; Z79.82 Long term (current) use of aspirin
CPT/HCPCS: 27447; 36415; 73560; 80053; 82962; 85027; 85730; 87641; 97110; 97116; 97161; 97165; 97530; A9270; C1776; J0171; J0690; J0697; J1885; J2250; J2270; J2405; J3010; J3370; J3490; J7050; J7120; 01402; 64450; J2704

== ENCOUNTER 2020-10-15 06:32 | Day surgery (SDC) | payer OTHER ==
[~2020-10-15 06:32] MED LIST changes: +Acetaminophen 325 MG Tab PO SCH; +Lidocaine 1%/Sod Bicarbonate in NS 8.4% 1 ML Syringe IDERM PRN; -Lidocaine 1%/Sod Bicarbonate in NS 8.4% 1 ML Syringe IV PRN; -Midazolam 1 MG/ML 2 ML SDV ONE; +Pregabalin 25 MG Cap PO SCH; -Propofol 200 MG/20 ML SDV ONE; -fentaNYL 100 MCG/2 ML SDV ONE; +oxyCODONE ER 10 MG TAB.ER PO SCH
[2020-10-15] MEDS ORDERED: Midazolam 1 MG/ML 2 ML SDV ONE ×2 (06:53)
[2020-10-15] MEDS ORDERED: Propofol 200 MG/20 ML SDV ONE ×3 (06:54→09:14)
[2020-10-15] MEDS ORDERED: fentaNYL 100 MCG/2 ML SDV ONE (06:55)
[2020-10-15] MEDS ORDERED: Dexamethasone 4 MG/ML 5 ML MDV ONE (06:58)
[2020-10-15] MEDS ORDERED: Dexmedetomidine 200 MCG/2 ML SDV ONE (06:58)
--- NOTE | 2020-10-15 07:48 | PCM.PREANE ---
Preanesthetic Assessment - Procedure Proposed Procedure: Right reverse total shoulder replacement - Anesthesia/Transfusion/Family Hx Anesthesia History: Prior Anesthesia Without Reaction - Review of Systems General: No Symptoms Pulmonary: No Symptoms Cardiovascular: No Symptoms Gastrointestinal: No Symptoms Neurological: No Symptoms, Other (s/p stroke, no motor deficits noted) Other: Reports: None - Physical Assessment NPO Status Date: 10/14/20 NPO Status Time: 20:00 Vital Signs: Last Vital Signs Temp 97.7 F 10/15/20 06:30 Pulse 49 L 10/15/20 06:30 Resp 16 10/15/20 06:30 BP 128/72 10/15/20 06:30 Pulse Ox 97 10/15/20 06:30 ASA Class: 2 Mental Status: Alert & Oriented x3 Airway Class: Mallampati = 2 Dentition: Reports: Normal Dentition, [place](s), Missing Tooth/Teeth Thyro-Mental Finger Breadths: 3 Mouth Opening Finger Breadths: 3 ROM/Head Extension: Full Lungs: Clear to Auscultation, Normal Respiratory Effort Cardiovascular: Regular Rate, Regular Rhythm - Lab Values: Laboratory Last Values POC Glucose 137 mg/dL (70-105) H 10/15/20 07:02 MRSA (PCR) Negative 10/03/20 14:37 - Allergies Allergies/Adverse Reactions: Allergies Allergy/AdvReac Type Severity Reaction Status Date / Time No Known Allergies Allergy Verified 10/12/20 11:21 - Acknowledgements Anesthesia Type Planned: General Anesthesia, Regional Block (Rt ISB), MAC Pt an Appropriate Candidate for the Planned Anesthesia: Yes Alternatives and Risks of Anesthesia Discussed w Pt/Guardian: Yes Pt/Guardian Understands and Agrees with Anesthesia Plan: Yes PreAnesthesia Questionnaire HEENT History: Reports: Impaired Vision, Other (See Below) Other HEENT History: tinnitis Cardiovascular History: Reports: High Cholesterol, Hypertension Respiratory History: Reports: None Other Respiratory History: punctured lung d/t logging accident Gastrointestinal History: Reports: GERD, Hepatitis Genitourinary History: Reports: None PYTHON ARCHITECT History: Reports: None Musculoskeletal History: Reports: Other (See Below) Other Musculoskeletal History: left knee pain, heel pain, lateral epicondylitis, low back pain, bilateral carpal tunnel release Neurological History: Reports: CVA, Other (See Below) Other Neuro History: cerviclagia Psychiatric History: Reports: Depression, Other (See Below) Other Psychiatric History: insomnia Endocrine/Metabolic History: Reports: Diabetes, Type II Hematologic History: Reports: None Immunologic History: Reports: None Oncologic (Cancer) History: Reports: None Dermatologic History: Reports: None - Infectious Disease History Infectious Disease History: Reports: Hepatitis C - Past Surgical History Head Surgeries/Procedures: Reports: None HEENT Surgical History: Reports: None Cardiovascular Surgical History: Reports: None Respiratory Surgical History: Reports: None GI Surgical History: Reports: Colonoscopy Female Surgical History: Reports: None Male Surgical History: Reports: None Endocrine Surgical History: Reports: None Neurological Surgical History: Reports: Lumbar Spine Musculoskeletal Surgical History: Reports: Carpal Tunnel, Knee Replacement, Shoulder Surgery Other Musculoskeletal Surgeries/Procedures:: bilateral shoulder surgeries, bilateral carpal tunnel release, left meniscus repair Oncologic Surgical History: Reports: None Dermatological Surgical History: Reports: None - SUBSTANCE USE Tobacco Use Status *Q: Current Every Day Tobacco User Recreational Drug Use History: No - HOME MEDS Home Medications: Home Meds metFORMIN [Glucophage XR] 500 mg PO QAM 11/25/16 [History] Pantoprazole Sodium [Protonix] 40 mg PO DAILY 08/05/17 [History] Simvastatin [Zocor] 20 mg PO BEDTIME 08/05/17 [History] Fish Oil/[place]-3 Fatty Acids [Fish Oil 1,000 MG] 1 gm PO BID 07/21/18 [History] Cholecalciferol (Vitamin D3) [Vitamin D3] 2,000 unit PO DAILY 10/12/20 [History] DULoxetine [Cymbalta] 60 mg PO DAILY 10/12/20 [History] Latanoprost/Pf [Latanoprost 0.005% Eye Drop] 1 dose EYEBOTH BEDTIME 10/12/20 [History] [place] Carbonate 600 mg PO BEDTIME 10/12/20 [History] Naloxone HCl [Narcan] 1 dose ANGE ASDIRECTED PRN 10/12/20 [History] Psyllium Husk [Metamucil] 1 dose PO QAM 10/12/20 [History] hydroCHLOROthiazide [Hydrochlorothiazide] 25 mg PO DAILY 10/12/20 [History] Aspirin [Aspirin EC] 325 mg PO DAILY #30 10/13/20 [Rx] Cyclobenzaprine [Flexeril] 10 mg PO BID PRN #20 tab 10/13/20 [Rx] oxyCODONE 5 - 10 mg PO Q4H PRN #40 tab 10/13/20 [Rx] - CURRENT (IN HOUSE) MEDS Current Meds: Current Medications Acetaminophen (Acetaminophen 325 Mg Tab) 975 mg PO ONETIME [facility]IL[facility] Stop: 10/15/20 16:00 Last Admin: 10/15/20 06:50 Dose: 975 mg Documented by: Lactated Ringer's (Ringers, Lactated) 1,000 mls @ 125 mls/hr IV ASDIRECTED [facility] Stop: 10/15/20 23:00 Last Admin: 10/15/20 07:00 Dose: 125 mls/hr Documented by: Lidocaine/Sodium Bicarbonate (Lidocaine 1%/Sod Bicarbonate In Ns 8.4% 1 Ml Syringe) 0.25 ml IDERM ONETIME PRN PRN Reason: Prior to IV Start Stop: 10/15/20 23:00 Last Admin: 10/15/20 06:59 Dose: 0.25 ml Documented by: Oxycodone HCl (Oxycodone Er 10 Mg Tab.Er) 10 mg PO ONETIME [facility]ILA Stop: 10/15/20 16:00 Last Admin: 10/15/20 06:50 Dose: 10 mg Documented by: Pregabalin (Pregabalin 25 Mg Cap) 50 mg PO ONETIME [facility]IL[facility] Stop: 10/15/20 16:00 Last Admin: 10/15/20 06:50 Dose: 50 mg Documented by: Sodium Chloride (Sodium Chloride 0.9% 10 Ml Syringe) 10 ml FLUSH ASDIRECTED PRN PRN Reason: Keep Vein Open Stop: 10/15/20 23:00 Discontinued Medications Dexamethasone (Dexamethasone 4 Mg/Ml 5 Ml Mdv) Confirm Administered Dose 20 mg .ROUTE .STK-MED ONE Stop: 10/15/20 06:59 Dexmedetomidine HCl (Dexmedetomidine 200 Mcg/2 Ml Sdv) Confirm Administered Dose 200 mcg .ROUTE .STK-MED ONE Stop: 10/15/20 06:59 Fentanyl (Fentanyl 100 Mcg/2 Ml Sdv) Confirm Administered Dose 100 mcg .ROUTE .STK-MED ONE Stop: 10/15/20 06:56 Midazolam HCl (Midazolam 1 Mg/Ml 2 Ml Sdv) Confirm Administered Dose 6 mg .ROUTE .STK-MED ONE Stop: 10/15/20 06:54 Midazolam HCl (Midazolam 1 Mg/Ml 2 Ml Sdv) Confirm Administered Dose 2 mg .ROUTE .STK-MED ONE Stop: 10/15/20 06:54 Propofol (Propofol 200 Mg/20 Ml Sdv) Confirm Administered Dose 400 mg .ROUTE .STK-MED ONE Stop: 10/15/20 06:55 Tranexamic Acid (Tranexamic Acid 1,000 Mg/10 Ml Amp) Confirm Administered Dose 1,000 mg .ROUTE .STK-MED ONE Stop: 10/15/20 07:08 Vancomycin HCl (Vancomycin 1 Gm Sdv) Confirm Administered Dose 1 gm .ROUTE .STK- MED ONE Stop: 10/15/20 07:08
--- NOTE | 2020-10-15 07:56 | PCM.PRNOTE ---
- Free Text/Narrative Note: Postoperative regional pain control requested by surgeon. Pre-op Dx: Right shoulder osteoarthritis Surgical procedure: Right reverse total shoulder arthroplasty Procedure: Rt Interscalene block with U/S guidance Requesting physician: Dr. Catrachito Jara Risks and benefits discussed with the patient preoperatively including infection, bleeding, incomplete or failed block, possible nerve damage, local anesthetic toxicity. Chart reviewed, VS stable. Permit signed. Patient in preoperative room 6, stable , alert and awake. Time out performed at 07:32. Oxygen 3L via NC. Right side of the neck was prepped with Chloraprep x 1 and allowed to dry. Midazolam IV 2 mg given. Under aseptic technique, the brachial plexus was identified under ultrasound prior to needle insertion. Local infiltration with 2mls of 1% Lidocaine. 2" Stimuplex needle #22 G was inserted under US guidance. Neuromuscular response of biceps contraction and forearm twitching elicited at 0.6 mA. Under direct visualization of needle tip the injection of 2% Lidocaine with 1:200k epinephrine (6 mls), followed by 0.5% Ropivacaine with 1:200k epinephrine (mixed with 8 mg of Dexamethasone and 40 mcg of Dexmedetomidine) total of 17 mls in divided doses, maintaining negative aspiration was completed without problems. No local anesthetic toxicity was noted. Patient is awake, stable and tolerated the procedure well. Please see the attached U/S images Time: 07:32 - 07:42
[2020-10-15] MEDS ORDERED: Lidocaine 1% 4 ML ONE (08:26)
[2020-10-15] MEDS ORDERED: ceFAZolin 1 GM Vial ONE (08:27)
[2020-10-15 08:50] LABS: HEMOGLOBIN A1C 6.5 %
[2020-10-15] MEDS: Vancomycin 1 GM SDV ONE ×2 (09:27→09:56)
[2020-10-15] MEDS ORDERED: Lactated Ringers 1,000 ML ONE (10:18)
--- NOTE | 2020-10-15 11:08 | PCM48HPAN ---
Post Anesthesia Note - EVALUATION WITHIN 48HRS OF ANESTHETIC Vital Signs in Normal Range: Yes Patient Participated in Evaluation: Yes Respiratory Function Stable: Yes Airway Patent: Yes Cardiovascular Function Stable: Yes Hydration Status Stable: Yes Pain Control Satisfactory: Yes Nausea and Vomiting Control Satisfactory: Yes Mental Status Recovered: Yes Vital Signs: Last Vital Signs Temp 97.4 F 10/15/20 10:59 Pulse 51 L 10/15/20 10:59 Resp 12 10/15/20 10:59 BP 146/87 H 10/15/20 10:59 Pulse Ox 95 10/15/20 10:59
[2020-10-15] MEDS ORDERED: Ropivacaine 0.5% 5 MG/ML 30 ML SDV ONE (11:10)
--- NOTE | 2020-10-15 11:32 | CR ---
Right shoulder: 2 views of the right shoulder were obtained utilizing C-arm device. Study obtained in the operating room. Study shows placement of a reverse right shoulder prosthesis. Components are aligned. Fluoroscopy time given is 1.9 seconds. Impression: 1. Procedural study as noted above. Diagnostic code #2
--- NOTE | 2020-10-15 11:35 | CR ---
Right shoulder: Single AP view of the right shoulder was obtained. Comparison: Prior operative study performed earlier on the same day. Reverse right shoulder prosthesis is seen. Components are aligned. Soft tissue air is noted from the surgical procedure. No acute osseous finding is seen. Impression: 1. Satisfactory postop radiographic appearance of recently placed right shoulder prosthesis. Diagnostic code #2
--- NOTE | 2020-10-15 12:00 | PCM.OPNOTE ---
- General Post-Op/Procedure Note Date of Surgery/Procedure: 10/15/20 Operative Procedure(s): right reverse total shoulder arthroplasty Pre Op Diagnosis: right shoulder rotator cuff tear arthropathy Post-Op Diagnosis: Same Anesthesia Technique: MAC, Regional Block Primary Surgeon: Catrachito Louis Anesthesia Provider: Brian Luna Papier Mache Molder: Yamilet Avila Papier Mache Molder: Martha Quick EBL in mLs: 150 Complications: None Condition: Good Free Text/Narrative:: 15 stem 36+2 28 baseplate 4mm
[2020-10-15 14:55] VITALS: BP 128/64; PULSE 60
--- NOTE | 2020-11-06 07:19 | OR ---
DATE OF OPERATION: 10/15/2020 SURGEON: Catrachito Louis MD OPERATION PERFORMED: Right reverse total shoulder arthroplasty. PREOPERATIVE DIAGNOSIS: Right shoulder rotator cuff tear arthropathy. POSTOPERATIVE DIAGNOSIS: Right shoulder rotator cuff tear arthropathy. ANESTHESIA: MAC with regional block. ANESTHESIA PROVIDER: Shobha Mcgee. FILING MACHINE OPERATOR: Yamilet Avila PA-C; and Martha Quick LPN. ESTIMATED BLOOD LOSS: 150 mL. COMPLICATIONS: None. CONDITION: Stable. IMPLANTS: 1. Rodney size 135 degree reverse humeral size 15 stem. 2. 36 +2 glenosphere. 3. 28 mm concentric base plate. 4. 4 mm polyethylene insert. DESCRIPTION OF PROCEDURE: The patient was identified in the preoperative holding area. Proper site was marked and identified by the surgeon. The patient was taken back to the operating theater where after adequate anesthesia, the patient was placed supine on a radiolucent table. Right upper extremity was then sterilely prepped and draped in the usual sterile fashion. OR time-out was performed. The patient received 2 g of IV Ancef. The patient was placed in reverse Trendelenburg position. Standard deltopectoral incision was made. Cephalic vein was identified and was retracted laterally. With the deltoid, the pectoralis major tendon was retracted medially. Clavipectoral fascia was incised and the conjoined tendon was retracted medially. Anterior humeral circumflex vessels were ligated. The bicipital groove was then opened. Biceps tenodesis was performed at the level of the pectoralis. Proximal to this, the biceps was resected back to the level of the glenoid. Subscapularis was then peeled down. Humeral head was then dislocated and humeral head cut was completed and was found to be adequate. All osteophytes were removed. Attention was turned to the glenoid. Anterior posterior glenoid retractors were placed. Circumferential removal of the labrum as well as a partial capsulectomy was performed at this time. Guide pin was placed in a center-center position and 28 mm concentric reamer was used down to a good bony bleeding bed. Guide pin was then removed. Center screw was measured and the glenoid base plate was placed but the central compression screw was found to have adequate purchase. An inferior and superior locking screw were then placed in divergent fashion. A 36 +2 glenosphere was then impacted into place and attention was turned to the humerus. Humeral canal reamer was then utilized up to a size 15 and then sized up to a size 15 broach, which was found to be rotationally and vertically stable. A +4 trial insert was then placed and was found to be adequate. The trial components were reduced. C-arm fluoroscopy showed all parts to be anatomic. There was no signs of instability through a full range of motion. Trial implants were then removed. The size 15 stem with a 4 mm poly 135 degrees was then constructed on the back table and impacted into the humerus. Shoulder was then relocated. C-arm fluoroscopy showed no signs of fractures with anatomic reduction of the components. 1 L of pulse lavage irrigation with Ancef was irrigated through the shoulder along with 400 mL of IrriSept irrigation. Topical tranexamic acid and vancomycin powder were applied. 2-0 Vicryl was used subcutaneously, and Prineo was used for skin closure. The patient had a sterile soft dressing applied and sent to the PACU in stable condition. RUSS /[id number]
== END 2020-10-15 13:20 | disposition home or self-care (01) ==
LOC: JD.SDS 06:32
PROVIDERS: ATTEND Orthopaedic Surgery
DX: M19.011 Primary osteoarthritis, right shoulder (principal); M25.711 Osteophyte, right shoulder; M75.101 Unspecified rotator cuff tear or rupture of right shoulder, not specified as traumatic; G47.00 Insomnia, unspecified; E78.5 Hyperlipidemia, unspecified; E11.9 Type 2 diabetes mellitus without complications; I10 Essential (primary) hypertension; F17.210 Nicotine dependence, cigarettes, uncomplicated; E78.00 Pure hypercholesterolemia, unspecified; Z86.73 Personal history of transient ischemic attack (TIA), and cerebral infarction without residual deficits; Z98.890 Other specified postprocedural states
CPT/HCPCS: 23472; 36415; 73020; 76000; 82962; 83036; 85730; 87641; 97161; 97165; A9270; C1713; C1769; C1776; J0690; J1100; J2250; J2704; J2795; J3010; J3370; J7120; 01638; 64415; 76942

== ENCOUNTER 2021-05-19 03:57 | Emergency (ER) | payer OTHER ==
[2021-05-19 04:09] VITALS: BP 150/76; PULSE 65
[2021-05-19] MEDS ORDERED: FLU Vacc QS2021-22 36MOS UP/PF 60 MCG/0.5 ML Syringe IM ONE (04:30)
[2021-05-19] MEDS ORDERED: Meclizine 12.5 MG Tab PO ONE (05:04)
--- NOTE | 2021-05-19 05:28 | EDM.PDOC ---
ED HPI GENERAL MEDICAL PROBLEM - General Chief Complaint: Neurological Problem Stated Complaint: DIZZY SPELLS/HIGH BP Time Seen by Provider: 05/19/21 04:40 Source of Information: Reports: Patient History Limitations: Reports: No Limitations - History of Present Illness INITIAL COMMENTS - FREE TEXT/NARRATIVE: Patient is a 61-year-old male with a past medical history of hypertension presenting with a chief complaint of dizziness. Patient reports dizziness for the past 3 to 3.5 weeks. Patient states dizziness seems to be only positional. He states he feels it most significantly when he lies on his back and turns his head and sometimes when he moves from a lying position to a standing position. He does not have any dizziness when he moves from a sitting position to a st anding position. He reports mild symptoms of dizziness with rotation of his head. Patient denies any blurry vision, nausea, vomiting, diarrhea, chest pain. He has not sought evaluation before. He states tonight he had an episode that seemed to get worse. He called the nurse triage line at the [facility] and they told him to take his blood pressure. He was found to be significantly elevated with a systolic blood pressure in the 180s. However, he denies any other neurologic complaints besides a mild headache. He denies numbness, paresthesias, weakness of his arms or legs. No slurring of his speech. Headache Pain Score (Numeric/FACES): 5 - Related Data Allergies Allergy/AdvReac Type Severity Reaction Status Date / Time No Known Allergies Allergy Verified 10/12/20 11:21 Home Meds: Home Meds metFORMIN [Glucophage XR] 500 mg PO QAM 11/25/16 [History] Pantoprazole Sodium [Protonix] 40 mg PO DAILY 08/05/17 [History] Simvastatin [Zocor] 20 mg PO BEDTIME 08/05/17 [History] DULoxetine [Cymbalta] 60 mg PO DAILY 10/12/20 [History] hydroCHLOROthiazide [Hydrochlorothiazide] 25 mg PO DAILY 10/12/20 [History] Aspirin [Aspirin EC] 325 mg PO DAILY #30 10/13/20 [Rx] Cyclobenzaprine [Flexeril] 10 mg PO BID PRN #20 tab 10/13/20 [Rx] Meclizine [Antivert] 25 mg PO BID #15 tab 05/19/21 [Rx] Past Medical History HEENT History: Reports: Impaired Vision, Other (See Below) Other HEENT History: tinnitis Cardiovascular History: Reports: High Cholesterol, Hypertension Respiratory History: Reports: None Other Respiratory History: punctured lung d/t logging accident Gastrointestinal History: Reports: GERD, Hepatitis Genitourinary History: Reports: None [employer] History: Reports: None Musculoskeletal History: Reports: Other (See Below) Other Musculoskeletal History: left knee pain, heel pain, lateral epicondylitis, low back pain, bilateral carpal tunnel release Neurological History: Reports: CVA, Other (See Below) Other Neuro History: cerviclagia Psychiatric History: Reports: Depression, Other (See Below) Other Psychiatric History: insomnia Endocrine/Metabolic History: Reports: Diabetes, Type II Hematologic History: Reports: None Immunologic History: Reports: None Oncologic (Cancer) History: Reports: None Dermatologic History: Reports: None - Infectious Disease History Infectious Disease History: Reports: Hepatitis C - Past Surgical History GI Surgical History: Reports: Colonoscopy Neurological Surgical History: Reports: Lumbar Spine Musculoskeletal Surgical History: Reports: Carpal Tunnel, Knee Replacement, Shoulder Surgery Other Musculoskeletal Surgeries/Procedures:: bilateral shoulder surgeries, bilateral carpal tunnel release, left meniscus repair Social & Family History - Family History Family Medical History: No Pertinent Family History - Tobacco Use Tobacco Use Status *Q: Current Every Day Tobacco User Years of Tobacco use: 15 Packs/Tins Daily: 0.7 - Caffeine Use Caffeine Use: Reports: Energy Drinks - Recreational Drug Use Recreational Drug Use: No ED ROS GENERAL - Review of Systems Review Of Systems: See Below Free Text/Narrative/Comment: In addition to that documented in the HPI above, the additional ROS was obtained: Constitutional: Denies fevers or chills Eyes: Denies vision changes ENMT: Denies sore throat CV: Denies chest pain Resp: Denies SOB GI: Denies vomiting or diarrhea : Denies painful urination MSK: Denies recent trauma Skin: Denies new rashes Neuro: Denies new numbness or tingling or weakness Endocrine: Denies unexpected weight loss Heme: Denies bleeding disorders ED EXAM, DIZZINESS - Physical Exam Exam: See Below Text/Narrative:: I have reviewed the triage vital signs Const: Well nourished, well developed, appears stated age. Nontoxic appearance. No acute distress. Eyes: Pupils Equal and reactive to light bilaterally, no conjunctival injection. No nystagmus HENT: No signs of trauma or swelling, Neck supple without meningismus CV: Regular Rate Rhythm, Warm, well-perfused extremities RESP: Unlabored respiratory effort GI: soft, non-tender, non-distended, no masses MSK: No gross deformities appreciated Skin: Warm, dry. No rashes Neuro: Alert, occupational therapy department chair II-XII intact. Sensation and motor function of extremities intact. Uzair-Hallpike maneuver was positive to the right. Psych: Appropriate mood and affect. Course - Vital Signs Last Recorded V/S: Last Vital Signs Temp 35.9 C L 05/19/21 04:04 Pulse 65 05/19/21 04:04 Resp 14 05/19/21 04:04 BP 150/76 H 05/19/21 04:04 Pulse Ox 99 05/19/21 04:04 - Orders/Labs/Meds Orders: Active Orders 24 hr Category Date Time Status Vaccine to be Administered/Admin Charge [RC] ASDIRECTED Care 05/19/21 04:16 Active Meds: Medications Discontinued Medications Generic Name Dose Route Start Last Admin Trade Name Freq PRN Reason Stop Dose Admin Influenza Virus Vaccine 1 each 05/19/21 04:15 Pharmacy To Dose - Influenza Vaccine IM 05/19/21 04:16 ONETIME ONE Influenza Virus Vaccine 60 mcg 05/19/21 04:30 05/19/21 05:13 Flu Vacc [id number] 36mos Up/Pf 60 Mcg/0.5 Ml Syringe IM 05/19/21 04:31 60 mcg .ONCE ONE Administration Meclizine HCl 25 mg 05/19/21 05:04 05/19/21 05:13 Meclizine 12.5 Mg Tab PO 05/19/21 05:05 25 mg ONETIME ONE Administration Departure - Departure Time of Disposition: 05:38 Disposition: Home, Self-Care 01 Clinical Impression: Benign positional vertigo - Discharge Information Prescriptions: Meclizine [Antivert] 25 mg PO BID #15 tab Instructions: Vertigo, [id number], How to Perform the Brandi Maneuver Referrals: Татьяна Miles MD [Primary Care Provider] - Forms: ED Department Discharge Sepsis Event Note (ED) - Evaluation Sepsis Screening Result: No Definite Risk - Focused Exam Vital Signs: Vital Signs Temp Pulse Resp BP Pulse Ox 05/19/21 04:04 35.9 C L 65 14 150/76 H 99 - My Orders Last 24 Hours: My Active Orders 05/19/21 04:16 Vaccine to be Administered/Admin Charge [RC] ASDIRECTED - Assessment/Plan Last 24 Hours: My Active Orders 05/19/21 04:16 Vaccine to be Administered/Admin Charge [RC] ASDIRECTED Assessment:: Patient 61-year-old male presenting to the emergency room with a chief complaint of dizziness. Patient not demonstrating any neurologic deficits on my e xamination. Patient history and examination consistent with benign positional paroxysmal vertigo. We went through the Brandi maneuver in the emergency room with improvement of symptoms. Subsequently, I did give patient meclizine for some mild residual vertigo. Alternatively, consideration for cerebellar stroke, orthostasis, subarachnoid hemorrhage but these all seem less likely given patient's presentation. All questions were addressed and answered. Patient given appropriate return precautions. Instructed to follow-up with ENT in the next 2 to 3 days. Patient agrees with this plan of care.
== END 2021-05-19 06:03 | disposition home or self-care (01) ==
LOC: JD.ED 03:57
DX: H81.10 Benign paroxysmal vertigo, unspecified ear (principal); E78.00 Pure hypercholesterolemia, unspecified; I10 Essential (primary) hypertension; K21.9 Gastro-esophageal reflux disease without esophagitis; E11.9 Type 2 diabetes mellitus without complications; Z72.0 Tobacco use; Z23 Encounter for immunization; Z79.84 Long term (current) use of oral hypoglycemic drugs; Z79.82 Long term (current) use of aspirin; Z79.899 Other long term (current) drug therapy
CPT/HCPCS: 90471; 90686; 99283; A9270; G0008